=== PATIENT | female | born 1940 | race American Indian/Alaskan Native ===

== ENCOUNTER 2016-10-14 12:23 | Emergency (ER) | payer MEDICARE ==
[2016-10-14 12:30] VITALS: BMI 21.0
--- NOTE | 2016-10-14 12:42 | ED PDOC ---
Arrival/HPI - General Chief Complaint: Abdominal Pain Time Seen by Provider: 10/14/16 12:30 Historian: Patient, Family (Daughter) - History of Present Illness Time/Duration: Prior to Arrival Symptom Onset: Gradual Symptom Course: Improving Severity Level: Mild Activities at Onset: Rest Associated Symptoms (Text): 10/14/16 12:39 Patient was directed to the emergency department from dialysis for chest pain. She had some abdominal pain previously which has completely resolved. No nausea vomiting or diarrhea. No back pain. There is some chronic dyspnea, and no different from usual. No fever or chills. She did finish dialysis today. Past Medical History - Infectious Disease Hx of Infectious Diseases: None - Tetanus Immunization Tetanus Immunization: Unknown - Cardiac Hx Pacemaker: No - Pulmonary Hx Respiratory Disorders: No - Neurological Hx Paralysis: No - HEENT Hx HEENT Disorder: Yes (wears glasses) - Renal Hx Renal Disorder: Yes Hx Dialysis: Yes ([facility] [place] [id number]) Date of Last Dialysis Treatment: 10/14/16 Hx Renal Failure: Yes (insufficency) - Endocrine/Metabolic Hx Endocrine Disorders: Yes Hx Diabetes Mellitus Type 2: Yes - Hematological/Oncological Hx Anemia: Yes Hx Blood Transfusions: Yes - Integumentary Hx Dermatological Disorder: No - Musculoskeletal/Rheumatological Hx Musculoskeletal Disorders: Yes - Gastrointestinal Hx Gastrointestinal Disorders: Yes Hx Diverticulitis: Yes - Genitourinary/Gynecological Hx Genitourinary Disorders: No - Psychiatric Hx Psychophysiologic Disorder: No Hx Emotional Abuse: No Hx Physical Abuse: No Hx Substance Use: No - Surgical History Hx Coronary Stent: Yes (3) Hx Open Heart Surgery: Yes Other/Comment: right chest wall dialysis cath - Anesthesia Hx Anesthesia Reactions: No Hx Malignant Hyperthermia: No - Suicidal Assessment Feels Threatened In Home Enviroment: No Family/Social History - Physician Review Nursing Documentation Reviewed: Yes Family/Social History: Unknown Family HX Smoking Status: Former Smoker Hx Alcohol Use: No Hx Substance Use: No Hx Substance Use Treatment: No Allergies/Home Meds Allergies/Adverse Reactions: Allergies GREG Inhibitors Allergy (Intermediate, Verified 10/14/16 12:33) SWELLING lorazepam [From Ativan] Allergy (Intermediate, Verified 10/14/16 12:33) SWELLING Home Medications: Home Meds Medication Instructions Recorded Confirmed Clopidogrel [Plavix] 75 mg PO DAILY 08/19/14 10/12/16 Furosemide [Lasix] 40 mg PO DAILY 11/24/14 10/12/16 Carvedilol [Coreg] 12.5 mg PO BID 01/15/16 10/12/16 Rosuvastatin Calcium [Crestor] 20 mg PO DAILY 01/15/16 10/12/16 cloNIDine [Catapres] 0.2 mg PO BID 04/13/16 10/12/16 hydrALAZINE [Apresoline] 25 mg PO TID 06/21/16 10/12/16 Mirtazapine [Remeron] 15 mg PO DAILY 10/12/16 10/12/16 Review of Systems - Physician Review All systems were reviewed & negative as marked: Yes - Review of Systems Constitutional: Fatigue. absent: Fevers Respiratory: SOB. absent: Cough, Wheezing Cardiovascular: Chest Pain. absent: Palpitations, Syncope Gastrointestinal: Abdominal Pain. absent: Diarrhea, Nausea, Vomiting Neurological: absent: Headache, Dizziness Physical Exam Vital Signs Temp Pulse Resp BP Pulse Ox 10/14/16 13:08 98.7 F 57 L 16 138/67 97 Temperature: Afebrile Blood Pressure: Normal Pulse: Regular Respiratory Rate: Normal Appearance: Positive for: Well-Appearing, Non-Toxic, Comfortable Pain Distress: None Mental Status: Positive for: Alert and Oriented X 3 - Systems Exam Head: Present: Atraumatic, Normocephalic Pupils: Present: PERRL Extroacular Muscles: Present: EOMI Conjunctiva: Present: Normal Mouth: Present: Moist Mucous Membranes Pharnyx: No: ERYTHEMA, EXUDATE, TONSILS ENLARGED Neck: Present: Normal Range of Motion Respiratory/Chest: Present: Decreased Breath Sounds, Rales (Mild bibasilar rales ). No: Respiratory Distress, Accessory Muscle Use, Wheezes, Retracting, Rhonchi , Tachypneic, Tender to Palpation Cardiovascular: Present: Regular Rate and Rhythm, Normal S1, S2. No: Murmurs Abdomen: Present: Normal Bowel Sounds. No: Tenderness, Distention, Peritoneal Signs, Rebound, Guarding Upper Extremity: Present: Normal Inspection. No: Cyanosis, Edema Lower Extremity: Present: Normal Inspection. No: Edema Neurological: Present: GCS=15, CN II-XII Intact, Speech Normal, Motor Func Grossly Intact Skin: Present: Warm, Dry, Normal Color. No: Rashes Psychiatric: Present: Alert, Oriented x 3, Normal Insight, Normal Concentration Medical Decision Making ED Course and Treatment: 10/14/16 13:04 EKG shows normal sinus rhythm rate approximately 76 with PVCs and PACs and no acute ST or T-wave changes 10/14/16 14:33 RN reports that the patient was feeling better and did not want to wait for her workup and she and her daughter eloped from the emergency department - Lab Interpretations Lab Results: 10/14/16 14:00 10/14/16 14:00 Lab Results 10/14/16 14:00: WBC 7.2, RBC 3.50, Hgb 10.1 L, Hct 30.7 L, MCV 87.7, MCH 28.9, MCHC 32.9, RDW 14.0, Plt Count 238, MPV 9.4, Gran % 72.1 H, Lymph % (Auto) 18.0 L, Addison % (Auto) 7.1 H, Eos % (Auto) 2.4, Baso % (Auto) 0.4, Gran # 5.22, Lymph # 1.3, Addison # 0.5, Eos # 0.2, Baso # 0.03, Sodium 136, Potassium 3.5 L, Chloride 97 L, Carbon Dioxide 31, Anion Gap 12, BUN 22 H, Creatinine 4.2 H, Est GFR ( Amer) 12, Est GFR (Non-Af Amer) 10, Random Glucose 81, Calcium 9.1 , Total Bilirubin 0.8, AST 36, ALT 22, Alkaline Phosphatase 141 H, Lactate Dehydrogenase 395, Total Creatine Kinase 29 L, Troponin I Pending, Total Protein 8.1, Albumin 3.7, Globulin 4.4, Albumin/Globulin Ratio 0.8 L, Lipase 192 - RAD Interpretation Radiology Orders: 10/14/16 12:38 CHEST PORTABLE [RAD] Stat Chest 1 view shows hardware with right-sided line. No infiltrate effusion or cardiomegaly Wastewater Supervisor: ED Physician - Medication Orders Current Medication Orders: Discontinued Medications Aspirin (Ecotrin) 81 mg PO STAT STA Stop: 10/14/16 12:38 Last Admin: 10/14/16 12:57 Dose: 81 MG Nitroglycerin (Nitrostat Sl Tab) 0.4 mg SL STAT STA Stop: 10/14/16 12:38 Last Admin: 10/14/16 12:57 Dose: 0.4 MG Disposition/Present on Arrival - Present on Arrival Any Indicators Present on Arrival: No History of DVT/PE: No History of Uncontrolled Diabetes: No Urinary Catheter: No History of Decub. Ulcer: No History Surgical Site Infection Following: None - Disposition Have Diagnosis and Disposition been Completed?: Yes Diagnosis: Chest pain, Abdominal pain, Renal failure Disposition: ELOPEMENT - ER ONLY Disposition Time: 14:34 Patient Plan: Other Patient Problems: Current Active Problems Problem Status Diagnosed Renal insufficiency Acute Condition: GOOD Discharge Instructions (ExitCare): Chest Pain (ED)
[2016-10-14 13:09] VITALS: BP 138/67; PULSE 57; RESP 16; TEMP 98.7; O2SAT 97
--- NOTE | 2016-10-14 13:10 | RAD ---
HISTORY: cp COMPARISON: Chest xray performed 09/02/16 TECHNIQUE: Chest, one view. FINDINGS: Right-sided dialysis catheter extends to the cavoatrial junction. LUNGS: No focal consolidation. Please note that chest x-ray has limited sensitivity for the detection of pulmonary masses. PLEURA: No significant pleural effusion identified. No definite pneumothorax . CARDIOVASCULAR: Median sternotomy. Mild cardiomegaly. Atherosclerotic calcifications. OSSEOUS STRUCTURES: Degenerative changes. VISUALIZED UPPER ABDOMEN: Unremarkable. OTHER FINDINGS: None. IMPRESSION: Right-sided dialysis catheter extends to the cavoatrial junction. Median sternotomy. Mild cardiomegaly. Atherosclerotic calcifications.
[2016-10-14 14:08] LABS: ADD MANUAL DIFF? NO
[2016-10-14 14:15] LABS: BASO # 0.03 K/mm3 (0.0-2.0); BASO % 0.4 % (0.0-3.0); EOS # 0.2 (0.0-0.7); EOS % 2.4 % (1.5-5.0); GRAN # 5.22 (1.4-6.5); GRAN % 72.1 % (50.0-68.0); HEMATOCRIT 30.7 % (36.0-48.0); LYMPH # 1.3 (1.2-3.4); MEAN CELL VOLUME 87.7 fL (80.0-105.0); MEAN CORPUSCULAR HEMOGLOBIN 28.9 pg (25.0-35.0); MEAN CORPUSCULAR HGB CONC 32.9 g/dl (31.0-37.0); MEAN PLATELET VOLUME 9.4 fl (7.0-11.0); MONO # 0.5 (0.1-0.6); MONO % 7.1 % (1.0-6.0); PLATELET COUNT 238 10^3/uL (120.0-450.0); WHITE BLOOD COUNT 7.2 10^3/ul (4.5-11.0)
[2016-10-14 14:25] LABS: ALB/GLOB RATIO 0.8 (1.1-1.8); BILIRUBIN,TOTAL 0.8 mg/dL (0.2-1.3); CALCIUM 9.1 mg/dL (8.4-10.5); POTASSIUM 3.5 mmol/L (3.6-5.0); TOTAL PROTEIN 8.1 g/dL (5.8-8.3)
[2016-10-14 14:36] LABS: TROPONIN I 0.02 ng/mL
--- NOTE | 2016-10-15 09:42 | CARD ---
APPROVED REPORT EKG Measurement Heart [id number] <Conclusion> Sinus rhythm PVCs RVCD PRWP Leftward axis Artifact present C/W ECG 09/02/16: PVCs are new
== END 2016-10-14 14:20 | disposition left against medical advice (07) ==
LOC: ED 12:23
DX: R07.9 Chest pain, unspecified (principal); R10.9 Unspecified abdominal pain; N19 Unspecified kidney failure; Z99.2 Dependence on renal dialysis; E11.9 Type 2 diabetes mellitus without complications

== ENCOUNTER 2016-10-26 09:51 | Emergency (ER) | payer MEDICARE ==
[2016-10-26 09:51] VITALS: BMI 21.0
[2016-10-26 09:58] VITALS: BP 116/59; PULSE 66; RESP 16; TEMP 98.6
--- NOTE | 2016-10-26 10:33 | CP.PCM.PN ---
<Frederick Brooks - Last Filed: 10/26/16 10:10> Subjective - Date & Time of Evaluation Date of Evaluation: 10/26/16 Time of Evaluation: 10:00 - Subjective Subjective: Responded STAT to rapid response call 75 year old female with a past medical history of mild dementia, HTN, ESRD on dialysis was being transported by [facility] for scheduled dialysis. Upon arrival, she fell out of the van and hit her head on the right side and right arm. customs guard, Xuan Truong called the rapid response. She was placed on a stretcher and transported to the ED immediately. Then RUG DRYING MACHINE OPERATOR team saw her in the ED and assessed her. Pt. denies LOC and had a also had an episode vomiting (without blood) and complains of headache and right arm pain. Vital signs pulse 67, BP 116/59, respirations 18 PE: Pt. is alert and oriented to person. She understands she is here for dialysis, but she does not know where she is or the date. There is a small abrasion on her right side of her forehead. No active bleeding noted. Pupils are PERRLA, cataracts noted, no JVD heart, RRR no murmrus Lungs, CTAB no wheezing, dialysis cath noted on Right chest wall Abd, soft, non tender Ext, no swelling, moves extremities fairly well, no pedal edema Skin is warm and dry A&O x1, right arm strength less than left, possibly chronic as per old chart Objective - Vital Signs/Intake and Output Vital Signs (last 24 hours): Temp Pulse Resp BP Pulse Ox 98.6 F 66 16 116/59 L 10/26/16 09:58 10/26/16 09:58 10/26/16 09:58 10/26/16 09:58 <Alecia Hernández - Last Filed: 10/26/16 10:47> Objective - Vital Signs/Intake and Output Vital Signs (last 24 hours): Temp Pulse Resp BP Pulse Ox 98.6 F 66 16 116/59 L 10/26/16 09:58 10/26/16 09:58 10/26/16 09:58 10/26/16 09:58 Attending/Attestation - Attestation I have personally seen and examined this patient.: Yes I have fully participated in the care of the patient.: Yes I have reviewed all pertinent clinical information, including history, physical exam and plan: Yes Notes (Text): 10/26/16 10:40 Patient was assessed by me after she was transferred to the ER. IMP:Fall PLAN:endorsed to ER MD .
--- NOTE | 2016-10-26 10:44 | ED PDOC ---
Arrival/HPI - General Chief Complaint: Trauma Time Seen by Provider: 10/26/16 10:03 Historian: Patient - History of Present Illness Narrative History of Present Illness (Text): 10/26/16 10:41 75 year old female presents to the emergency department after mechanical fall prior to arrival. Patient is alert and oriented to person. Spoke with patient's son, Ar, who reports this is her baseline mental status. Denies LOC. No other complaints at this time. Time/Duration: Prior to Arrival Symptom Onset: Sudden Symptom Course: Resolved Modifying Factors (Text): None Associated Symptoms (Text): None Past Medical History - Provider Review Nursing Documentation Reviewed: Yes - Infectious Disease Hx of Infectious Diseases: None - Tetanus Immunization Tetanus Immunization: Unknown - Cardiac Hx Pacemaker: No - Pulmonary Hx Respiratory Disorders: No - Neurological Hx Paralysis: No - HEENT Hx HEENT Disorder: Yes (wears glasses) - Renal Hx Renal Disorder: Yes Hx Dialysis: Yes ([facility] [place] [id number]) Date of Last Dialysis Treatment: 10/14/16 Hx Renal Failure: Yes (insufficency) - Endocrine/Metabolic Hx Endocrine Disorders: Yes Hx Diabetes Mellitus Type 2: Yes - Hematological/Oncological Hx Anemia: Yes Hx Blood Transfusions: Yes - Integumentary Hx Dermatological Disorder: No - Musculoskeletal/Rheumatological Hx Musculoskeletal Disorders: Yes - Gastrointestinal Hx Gastrointestinal Disorders: Yes Hx Diverticulitis: Yes - Genitourinary/Gynecological Hx Genitourinary Disorders: No - Psychiatric Hx Psychophysiologic Disorder: No Hx Emotional Abuse: No Hx Physical Abuse: No Hx Substance Use: No - Surgical History Hx Coronary Stent: Yes (3) Hx Open Heart Surgery: Yes Other/Comment: right chest wall dialysis cath - Anesthesia Hx Anesthesia Reactions: No Hx Malignant Hyperthermia: No - Suicidal Assessment Feels Threatened In Home Enviroment: No Family/Social History - Physician Review Nursing Documentation Reviewed: Yes Family/Social History: Unknown Family HX Smoking Status: Former Smoker Hx Alcohol Use: No Hx Substance Use: No Hx Substance Use Treatment: No Allergies/Home Meds Allergies/Adverse Reactions: Allergies GREG Inhibitors Allergy (Intermediate, Verified 10/26/16 09:58) SWELLING lorazepam [From Ativan] Allergy (Intermediate, Verified 10/26/16 09:58) SWELLING Home Medications: Home Meds Medication Instructions Recorded Confirmed Clopidogrel [Plavix] 75 mg PO DAILY 08/19/14 10/12/16 Furosemide [Lasix] 40 mg PO DAILY 11/24/14 10/12/16 Carvedilol [Coreg] 12.5 mg PO BID 01/15/16 10/12/16 Rosuvastatin Calcium [Crestor] 20 mg PO DAILY 01/15/16 10/12/16 cloNIDine [Catapres] 0.2 mg PO BID 04/13/16 10/12/16 hydrALAZINE [Apresoline] 25 mg PO TID 06/21/16 10/12/16 Mirtazapine [Remeron] 15 mg PO DAILY 10/12/16 10/12/16 Review of Systems - Physician Review All systems were reviewed & negative as marked: Yes Physical Exam - Physical Exam Narrative Physical Exam (Text): - Review of Systems Constitutional: Normal. absent: Fatigue, Weight Change, Fevers Eyes: Normal ENT: Normal Respiratory: Normal absent: SOB, Cough, Sputum Cardiovascular: Normal absent: Chest pain, Palpitations, Syncope Gastrointestinal: Normal absent: Abdominal pain, Diarrhea, Nausea, Vomiting Genitourinary: Normal. absent: Dysuria, Frequency, Hematuria Musculoskeletal: Normal. absent: Arthralgias, Back Pain, Neck Pain Skin: Normal Neurological: Normal absent: Focal Weakness Endocrine: Normal Hemo/Lymphatic: Normal Psychiatric: Normal - Physical exam Patient appears age appropriate, speaking full sentences without difficulty Head atraumatic. No nasal bone deformity or tenderness, no facial or jaw pain/ swelling. No neck midline tenderness, thoracic and lumbar spine with no midline tenderness. Pt moving b/l upper and lower extremities without difficulty, 5/5 strength, with full active and passive ROM. Distal neurovasc fully intact. Abd soft/nt/ng, no hematomas, no peritoneal signs. Neg. pelvic rock. - Systems Exam Head: Present: Atraumatic, Normocephalic Pupils: Present: PERRL Extraocular Muscles: Present: EOMI Conjunctiva: Present: Normal Mouth: Present: Moist Mucous Membranes Neck: Present: Normal Range of Motion. No: MIDLINE TENDERNESS, Paraspinal Tenderness Respiratory/Chest: Present: Clear to Auscultation, Good Air Exchange. No: Respiratory Distress, Accessory Muscle Use, Tachypneic Cardiovascular: Present: Regular Rate and Rhythm, Normal S1, S2, Peripheral Pulses Present. No: Murmurs Abdomen: Present: Normal Bowel Sounds, No: Tenderness, Peritoneal Signs, Rebound, Guarding, Distention Back: Present: Normal Inspection. No: Midline Tenderness, Paraspinal Tenderness Upper Extremity: Present: Normal Inspection. No: Cyanosis, Edema Lower Extremity: Present: Normal Inspection. No: Edema Neurological: Present: GCS=15, Speech Normal, cranial nerves II through XII fully intact with no cerebellar abnormality, neuro-sensory fully intact. No focal neurological deficits. Skin: Present: Warm, Dry, Normal Color. No: Rashes Lymphatic: Present: OX3, NI, NC Psychiatric: Present: Alert, Oriented x 1, Normal Concentration Vital Signs Reviewed: Yes Vital Signs Temp Pulse Resp BP 10/26/16 09:58 98.6 F 66 16 116/59 L Temperature: Afebrile Blood Pressure: Normal Pulse: Regular Respiratory Rate: Normal Appearance: Positive for: Well-Appearing, Non-Toxic, Comfortable Pain Distress: None Mental Status: Positive for: other (Alert and oriented x 1, baseline as per son) Finger Stick Blood Glucose: 141 Medical Decision Making ED Course and Treatment: Impression: 75 year old female with history of mild dementia presents s/p mechanical fall prior to arrival. On physical exam, patient has no acute findings. spoke with pt's son and daughter (wilian barger). they states pt is at her baseline MS. state she does not live alone. Plan: -- CT Head -- Reassess and disposition Progress Notes: CT Head IMPRESSION: Director Digital Analytics: Dr. Elroy Pardo No intracranial mass, hemorrhage or evidence of acute infarct. Old right frontal and right occipital encephalomalacia change with remote ischemic change deep right frontoparietal white matter. No change from 09/02/2016. 10/26/16 12:31 pt ambulates in the ER without difficulty or assistance states she feels comfortable being dc'd at this time pt states she is going to HD Pt states she understands to return to the ER right away for new or worsening symptoms or for inability to f/u with PMD or specialist as instructed. Patient states that she fully agrees with and understands discharge instructions. States that she agrees with the plan and disposition. Verbalized and repeated discharge instructions and plan. I have given the patient opportunity to ask any additional questions. . - RAD Interpretation Radiology Orders: 10/26/16 10:42 HEAD W/O CONTRAST [CT] Stat - EKG Interpretation Interpreted by ED Physician: Yes Type: 12 lead EKG - Scribe Statement The provider has reviewed the documentation as recorded by the Elsa Bates Provider Scribe Attestation: All medical record entries made by the Elsa were at my direction and personally dictated by me. I have reviewed the chart and agree that the record accurately reflects my personal performance of the history, physical exam, medical decision making, and the department course for this patient. I have also personally directed, reviewed, and agree with the discharge instructions and disposition. Disposition/Present on Arrival - Present on Arrival Any Indicators Present on Arrival: No History of DVT/PE: No History of Uncontrolled Diabetes: No Urinary Catheter: No History of Decub. Ulcer: No History Surgical Site Infection Following: None - Disposition Have Diagnosis and Disposition been Completed?: Yes Diagnosis: Fall Disposition: HOME/ ROUTINE Disposition Time: 12:55 Patient Plan: Discharge Patient Problems: Current Active Problems Problem Status Diagnosed Renal insufficiency Acute Condition: GOOD Discharge Instructions (ExitCare): Fall Prevention (ED), Fall Prevention for Older Adults (ED) Additional Instructions: PLEASE RETURN TO THE EMERGENCY DEPARTMENT FOR NEW OR WORSENING SYMPTOMS. RETURN RIGHT AWAY IF YOU CANNOT FOLLOW UP WITH YOUR PRIMARY CARE DOCTOR, CLINIC, OR SPECIALIST IN 1-2 DAYS.
--- NOTE | 2016-10-26 11:18 | CT ---
PROCEDURE: CT HEAD WITHOUT CONTRAST. HISTORY: fall COMPARISON: 09/02/2016 TECHNIQUE: Axial computed tomography images were obtained through the head/brain without intravenous contrast. Radiation dose: Total exam DLP = 789.32 mGy-cm. FINDINGS: HEMORRHAGE: No intracranial hemorrhage. BRAIN: No mass effect or edema. Old right frontal and right occipital encephalomalacia common nonspecific. No change from prior. No evidence of acute infarct. Extensive remote ischemic change right frontoparietal deep white matter. Mild periventricular chronic microvascular ischemic change. VENTRICLES: Unremarkable. No hydrocephalus. CALVARIUM: Unremarkable. PARANASAL SINUSES: Unremarkable as visualized. No significant inflammatory changes. MASTOID AIR CELLS: Unremarkable as visualized. No inflammatory changes. OTHER FINDINGS: None. IMPRESSION: No intracranial mass, hemorrhage or evidence of acute infarct. Old right frontal and right occipital encephalomalacia change with remote ischemic change deep right frontoparietal white matter. No change from 09/02/2016.
== END 2016-10-26 13:17 | disposition home or self-care (01) ==
LOC: ED 09:51
DX: Z03.89 Encounter for observation for other suspected diseases and conditions ruled out (principal); W19.XXXA Unspecified fall, initial encounter; E11.9 Type 2 diabetes mellitus without complications; Z87.891 Personal history of nicotine dependence; Z99.2 Dependence on renal dialysis

== ENCOUNTER 2016-11-01 09:07 | Day surgery (SDC) | payer MEDICARE ==
[2016-10-28 09:56] VITALS: BMI 217863.7
[2016-11-01 09:52] LABS: ADD MANUAL DIFF? NO
[2016-11-01 10:01] LABS: BASO # 0.03 K/mm3 (0.0-2.0); BASO % 0.5 % (0.0-3.0); EOS # 0.2 (0.0-0.7); EOS % 3.8 % (1.5-5.0); GRAN # 3.74 (1.4-6.5); GRAN % 59.8 % (50.0-68.0); HEMATOCRIT 33.7 % (36.0-48.0); LYMPH # 1.8 (1.2-3.4); LYMPH % 28.5 % (22.0-35.0); MEAN CELL VOLUME 88.7 fL (80.0-105.0); MEAN CORPUSCULAR HEMOGLOBIN 28.4 pg (25.0-35.0); MEAN PLATELET VOLUME 9.1 fl (7.0-11.0); MONO # 0.5 (0.1-0.6); MONO % 7.4 % (1.0-6.0); PLATELET COUNT 274 10^3/uL (120.0-450.0); RED CELL DISTRIBUTION WIDTH 14.6 % (11.5-14.5); WHITE BLOOD COUNT 6.3 10^3/ul (4.5-11.0)
[2016-11-01 11:08] LABS: ALB/GLOB RATIO 0.7 (1.1-1.8); BILIRUBIN,TOTAL 0.7 mg/dL (0.2-1.3); CALCIUM 10.1 mg/dL (8.4-10.5); POTASSIUM 4.7 mmol/L (3.6-5.0); TOTAL PROTEIN 8.9 g/dL (5.8-8.3)
[2016-11-01] MEDS ORDERED: Heparin 10,000 Units/ml ONE (11:11)
[2016-11-01] MEDS ORDERED: Liquid Adhesive TOP ONE (11:12)
[2016-11-01] MEDS ORDERED: Lidocaine 1% Inj (20ml) ONE (11:12)
[2016-11-01] MEDS ORDERED: Bupivacaine 0.5% Inj(30mL) ONE (11:12)
[2016-11-01] MEDS ORDERED: Etomidate 20 mg/10ml Inj IV ONE (11:47)
[2016-11-01] MEDS ORDERED: Propofol 10 mg/ml Inj (20 ML) ONE (11:47)
[2016-11-01] MEDS ORDERED: ePHEDrine 50 mg/ml Inj ONE (12:20)
[2016-11-01] MEDS ORDERED: Neostigmine Methylsulfate 3mg/3ml Syringe IV ONE (13:45)
--- NOTE | 2016-11-01 14:07 | PCM.SURG1 ---
Surgeon's Initial Post Op Note - Surgeon's Notes Surgeon: Lazaro Plate Put In Worker: Luz Elena Pre-Operative Diagnosis: renal failure, non-functional AVF (L) Operative Findings: AVF Post-Operative Diagnosis: same Operation Performed: Revision of Left AVF, Transposition of Basilic vein Specimen/Specimens Removed: n/a Estimated Blood Loss: EBL {In ML}: 10 Post-Op Condition: Good Date of Surgery/Procedure: 11/01/16 Time of Surgery/Procedure: 12:00
[2016-11-01] MEDS ORDERED: HYDROmorphone 0.5 mg/0.5 ml ISec IVP PRN (14:16)
[2016-11-01] MEDS ORDERED: Sodium Chloride 0.9% 1,000 ML IV SCH (14:30)
[2016-11-01 15:19] VITALS: RESP 18; TEMP 98.2; O2SAT 100
[2016-11-01 17:54] VITALS: BP 142/72; PULSE 66
--- NOTE | 2016-11-02 08:09 | PN ---
DATE: 11/01/2016 PREOPERATIVE DIAGNOSES: End-stage renal disease and a malfunctioning arteriovenous fistula. POSTOPERATIVE DIAGNOSES: End-stage renal disease and a malfunctioning arteriovenous fistula and a st ricture of the fistula. PROCEDURES PERFORMED: 1. Venous mapping of the left upper extremity veins and artery. 2. Revision of the AV fistula anastomosis. 3. Transposition of basilic vein of the AV fistula. SURGEON: Dr. Willis PUMP HOUSE ENGINEER: Dr. Laguna ANESTHESIOLOGIST: Dr. Soares ANESTHESIA: General endotracheal. ESTIMATED BLOOD LOSS: Minimal. SPECIMEN: None. The patient is a 75-year-old female with a history of end-stage renal disease, on dialysis via the in dwelling catheter. The patient was brought in for AV fistula revision, which was previously created in the antecubital fossa between basilic vein and brachial artery. However, due to the position of t he basilic vein as well as patient's poor status, the decision was made to stage it in 2 separate sta ges by creating AV fistula first and, once the fistula develops and works, proceed with the transposi tion. The patient was brought to the operating room and placed on the operating table in a supine position. The patient was connected to EKG, blood pressure and pulse oximeter monitors. The patient then und erwent general endotracheal anesthesia, was prepped and draped in the usual sterile fashion. First, a standard timeout procedure took place, and everybody in the room agreed as to the patient's identity, diagnosis and procedure to be performed. Using lidocaine mixed with Marcaine, the area of the incision was marked. I then proceeded with a ca reful evaluation of the left upper arm with a venous Doppler by carefully marking the position and si de branches of the basilic vein. The anastomosis was also evaluated, appeared to have a stricture fo r about 2 cm. I then marked that as well. Next, I proceeded with making an incision directly overly ing the basilic vein and carefully came down to the vein itself. The area of the anastomosis was car efully dissected out completely. It appeared to contain multiple bands of fibrous tissue, which were dissected out, and the vessel was freed up in order to alleviate the stricture. Once this was compl eted, the anastomosis was reinforced using 6-0 Prolene stitches, and then I proceeded with a mobiliza tion of the basilic vein. All the side branches were carefully taken down and ligated with 3-0 silk. Once the vein was completely freed and marked for positioning, I then proceeded with creating a fla p medially and anteriorly in order to reposition the vein on the top of biceps. Once this was create d, the fat itself was reconnected and the vein was put on top of it in a new bed directly under the s kin. This was perfectly palpable from outside. I then proceeded with closure of the wound using 3-0 Vicryl for the subcutaneous tissue and surgical yodit for the skin. A sterile dressing was applie d on top of the wound. The patient tolerated this procedure well and there were no complications. T he patient was awakened and transferred to recovery room for further observation. Celestino Willis MD cc: [id number] TT: 11/01/2016 14:28:17 Confirmation # [id number] Dictation # [id number] en 11/01/2016 17:37:54
== END 2016-11-01 18:00 | disposition home or self-care (01) ==
LOC: SDS 09:07
PROVIDERS: ATTEND General Practice
DX: T82.510A Breakdown (mechanical) of surgically created arteriovenous fistula, initial encounter (principal); I12.0 Hypertensive chronic kidney disease with stage 5 chronic kidney disease or end stage renal disease; N18.6 End stage renal disease; E11.22 Type 2 diabetes mellitus with diabetic chronic kidney disease; Y83.2 Surgical operation with anastomosis, bypass or graft as the cause of abnormal reaction of the patient, or of later complication, without mention of misadventure at the time of the procedure; I25.2 Old myocardial infarction; Z99.2 Dependence on renal dialysis
CPT/HCPCS: 36415; 36819; 36832; 80053; 85025; J0360; J0690; J1170; J1644; J2001; J2405; J2704; J2710; J3010; J7040

== ENCOUNTER 2016-11-09 10:15 | Inpatient (IN) | payer MEDICARE, OTHER ==
[2016-11-09] MEDS ORDERED: Sodium Chloride 0.9% 500 ML IV STA (10:32)
[2016-11-09 10:33] VITALS: BMI 20.9
--- NOTE | 2016-11-09 10:42 | ED PDOC ---
Arrival/HPI - General Time Seen by Provider: 11/09/16 10:19 Historian: Patient - History of Present Illness Narrative History of Present Illness (Text): 11/09/16 10:35 A 76 year old female, whose past medical history includes ESRD with hemodialysis on , presents to the emergency department complaining of dizziness and near-syncope before dialysis this morning. Patient reports she almost fell but was caught by her son. Patient denies any loss of consciousness , fever, nausea, vomiting, diarrhea, abdominal pain, urinary symptoms, chest pain, shortness of breath or any other complaints. PMD: Dr. Gonzalez Time/Duration: Other (This morning) Symptom Course: Unchanged Quality: Other Context: Home Past Medical History - Provider Review Nursing Documentation Reviewed: Yes - Infectious Disease Hx of Infectious Diseases: None - Tetanus Immunization Tetanus Immunization: Unknown - Cardiac Hx Pacemaker: No - Pulmonary Hx Respiratory Disorders: No - Neurological Hx Paralysis: No - HEENT Hx HEENT Disorder: Yes (wears glasses) - Renal Hx Dialysis: Yes ([facility] – [place] [id number]) Date of Last Dialysis Treatment: 10/14/16 - Endocrine/Metabolic Hx Endocrine Disorders: Yes Hx Diabetes Mellitus Type 2: Yes - Hematological/Oncological Hx Blood Transfusions: Yes Hx Blood Transfusion Reaction: No - Integumentary Hx Dermatological Disorder: No - Musculoskeletal/Rheumatological Hx Musculoskeletal Disorders: Yes - Gastrointestinal Hx Gastrointestinal Disorders: Yes Hx Diverticulitis: Yes - Genitourinary/Gynecological Hx Genitourinary Disorders: No - Psychiatric Hx Emotional Abuse: No Hx Physical Abuse: No Hx Substance Use: No - Surgical History Hx Coronary Stent: Yes (3) Hx Open Heart Surgery: Yes Other/Comment: right chest wall dialysis cath - Anesthesia Hx Anesthesia Reactions: No Hx Malignant Hyperthermia: No - Suicidal Assessment Feels Threatened In Home Enviroment: No Family/Social History - Physician Review Nursing Documentation Reviewed: Yes Family/Social History: No Known Family HX Smoking Status: Former Smoker Hx Alcohol Use: No Hx Substance Use: No Hx Substance Use Treatment: No Allergies/Home Meds Allergies/Adverse Reactions: Allergies GREG Inhibitors Allergy (Intermediate, Verified 11/09/16 10:34) SWELLING lorazepam [From Ativan] Allergy (Intermediate, Verified 11/09/16 10:34) SWELLING Home Medications: Home Meds Medication Instructions Recorded Confirmed Clopidogrel [Plavix] 75 mg PO DAILY 08/19/14 11/01/16 Furosemide [Lasix] 40 mg PO DAILY 11/24/14 11/01/16 Carvedilol [Coreg] 12.5 mg PO BID 01/15/16 11/01/16 Rosuvastatin Calcium [Crestor] 20 mg PO DAILY 01/15/16 11/01/16 cloNIDine [Catapres] 0.2 mg PO BID 04/13/16 11/01/16 hydrALAZINE [Apresoline] 25 mg PO TID 06/21/16 11/01/16 Mirtazapine [Remeron] 15 mg PO DAILY 10/12/16 11/01/16 traMADol [Ultram] 1 tab PO Q6 PRN 11/01/16 11/01/16 Physical Exam - Physical Exam Narrative Physical Exam (Text): - Review of Systems Constitutional: Normal. absent: Fatigue, Weight Change, Fevers Eyes: Normal ENT: Normal Respiratory: Normal absent: SOB, Cough, Sputum Cardiovascular: (+) Near-syncope absent: Chest pain, Palpitations Gastrointestinal: Normal absent: Abdominal pain, Diarrhea, Nausea, Vomiting Genitourinary: Normal. absent: Dysuria, Frequency, Hematuria Musculoskeletal: Normal. absent: Arthralgias, Back Pain, Neck Pain Skin: Normal Neurological: (+) Dizzy absent: Focal Weakness Endocrine: Normal Hemo/Lymphatic: Normal Psychiatric: Normal - Physical exam Patient appears age appropriate, speaking full sentences without difficulty - Systems Exam Head: Present: Atraumatic, Normocephalic Pupils: Present: PERRL Extraocular Muscles: Present: EOMI Conjunctiva: Present: Normal Mouth: Present: Moist Mucous Membranes Neck: Present: Normal Range of Motion. No: MIDLINE TENDERNESS, Paraspinal Tenderness Respiratory/Chest: Present: Clear to Auscultation, Good Air Exchange. No: Respiratory Distress, Accessory Muscle Use, Tachypneic Cardiovascular: Present: Regular Rate and Rhythm, Normal S1, S2, Peripheral Pulses Present. No: Murmurs Abdomen: Present: Normal Bowel Sounds, No: Tenderness, Peritoneal Signs, Rebound, Guarding, Distention Back: Present: Normal Inspection. No: Midline Tenderness, Paraspinal Tenderness Upper Extremity: Present: Normal Inspection. No: Cyanosis, Edema Lower Extremity: Present: Normal Inspection. No: Edema Neurological: Present: GCS=15, Speech Normal, cranial nerves II through XII fully intact with no cerebellar abnormality, neuro-sensory fully intact. No focal neurological deficits. Negative HINTS exam. Skin: Present: Warm, Dry, Normal Color. No: Rashes Lymphatic: Present: OX3, NI, NC Psychiatric: Present: Alert and Oriented x 1 (which is patients baseline) Vital Signs Reviewed: Yes Vital Signs Temp Pulse Resp BP Pulse Ox 11/09/16 11:28 67 18 135/61 100 11/09/16 10:29 97.9 F 64 18 87/43 L 100 Temperature: Afebrile Blood Pressure: Hypotensive Pulse: Regular Respiratory Rate: Normal Appearance: Positive for: Well-Appearing, Non-Toxic, Comfortable Pain Distress: None Mental Status: Positive for: Alert and Oriented X 3 Medical Decision Making ED Course and Treatment: 11/09/16 10:35 Impression: A 76 year old female with dizziness and near-syncope. Patient is alert and oriented x1, which is normal to her baseline. Negative HINTS exam. Plan: -- Head CT -- Chest xray -- EKG -- Labs -- Blood culture -- IV fluids -- Reassess and disposition Prior Visits: Notes and results from previous visits were reviewed. No recent dizzy or syncope work ups performed. Progress Notes: 11/09/16 10:[address] Gonzalez at bedside, who agrees with telemetry observation to her service for near syncope and further work-up. Pt aware of and agrees with plan Report Date: 11/09/16 11:19 Procedure: Chest xray Dictated By: Elroy Pardo MD Impression: No active disease. 11/09/16 11:40 EKG interpreted by ER physician. Normal sinus. No ST-segment elevations. Normal intervals. Report Date: 11/09/16 12:13 Procedure: CT Head without contrast Dictated By: Elroy Pardo MD Impression: No evidence of acute infarct. No intracranial mass or hemorrhage. No interval change peer - Lab Interpretations Lab Results: 11/09/16 11:00 11/09/16 11:00 Lab Results 11/09/16 11:00: WBC 5.0 D, RBC 3.43 L, Hgb 9.8 L, Hct 30.4 L, MCV 88.6, MCH 28.6, MCHC 32.2, RDW 14.9 H, Plt Count 251, MPV 8.5, Gran % 56.9, Lymph % (Auto ) 32.3, Bertie % (Auto) 5.4, Eos % (Auto) 4.8, Baso % (Auto) 0.6, Gran # 2.83, Lymph # 1.6, Bertie # 0.3, Eos # 0.2, Baso # 0.03, PT 11.5, INR 1.06, APTT 27.8, Sodium 138, Potassium 4.5, Chloride 97 L, Carbon Dioxide 28, Anion Gap 18, BUN 43 H, Creatinine 8.6 H*, Est GFR ( Amer) 5, Est GFR (Non-Af Amer) 4, Random Glucose 121 H, Calcium 9.8, Total Bilirubin 0.8, AST 41 H, ALT 23, Alkaline Phosphatase 133, Lactate Dehydrogenase 466, Total Creatine Kinase 55, Troponin I 0.02, Total Protein 8.5 H, Albumin 3.8, Globulin 4.7, Albumin/ Globulin Ratio 0.8 L I have reviewed the lab results: Yes - RAD Interpretation Radiology Orders: 11/09/16 10:32 HEAD W/O CONTRAST [CT] Stat CHEST PORTABLE [RAD] Stat - Medication Orders Current Medication Orders: Amlodipine Besylate (Norvasc) 10 mg PO DAILY CAIN Aspirin (Aspirin Chewable) 81 mg PO DAILY CAIN Atorvastatin Calcium (Lipitor) 80 mg PO DAILY CAIN Carvedilol (Coreg) 12.5 mg PO BID CAIN Clonidine HCl (Catapres) 0.2 mg PO BID CAIN Clopidogrel Bisulfate (Plavix) 75 mg PO DAILY CAIN Hydralazine HCl (Apresoline) 25 mg PO TID CAIN Mirtazapine (Remeron) 15 mg PO HS CAIN Tramadol HCl (Ultram) 50 mg PO Q6 PRN PRN Reason: Pain, moderate (4-7) Discontinued Medications Sodium Chloride (Sodium Chloride 0.9%) 500 mls @ 1,000 mls/hr IV .Q30M STA Stop: 11/09/16 11:01 Last Admin: 11/09/16 11:03 Dose: 1,000 MLS/HR eMAR Start Stop Document 11/09/16 11:03 SS (Rec: 11/09/16 11:03 SS [id number]) Intravenous Solution Start Date 11/09/16 Start Time 11:03 End Date 11/09/16 End time 11:33 Total Infusion Time 30 - Scribe Statement The provider has reviewed the documentation as recorded by the Elsa Boykin Provider Jeffersonibvictor hugo Attestation: All medical record entries made by the Scribe were at my direction and personally dictated by me. I have reviewed the chart and agree that the record accurately reflects my personal performance of the history, physical exam, medical decision making, and the department course for this patient. I have also personally directed, reviewed, and agree with the discharge instructions and disposition. Disposition/Present on Arrival - Present on Arrival Any Indicators Present on Arrival: No History of DVT/PE: No History of Uncontrolled Diabetes: No Urinary Catheter: No History Surgical Site Infection Following: None - Disposition Have Diagnosis and Disposition been Completed?: Yes Diagnosis: Near syncope Disposition: HOSPITALIZED Disposition Time: 10:57 Patient Plan: Observation Patient Problems: Current Active Problems Problem Status Diagnosed Near syncope Acute Renal insufficiency Acute Condition: FAIR
[2016-11-09 11:10] LABS: ADD MANUAL DIFF? NO
[2016-11-09 11:12] LABS: BASO # 0.03 K/mm3 (0.0-2.0); BASO % 0.6 % (0.0-3.0); EOS # 0.2 (0.0-0.7); EOS % 4.8 % (1.5-5.0); GRAN # 2.83 (1.4-6.5); GRAN % 56.9 % (50.0-68.0); HEMATOCRIT 30.4 % (36.0-48.0); LYMPH # 1.6 (1.2-3.4); LYMPH % 32.3 % (22.0-35.0); MEAN CELL VOLUME 88.6 fL (80.0-105.0); MEAN CORPUSCULAR HEMOGLOBIN 28.6 pg (25.0-35.0); MEAN CORPUSCULAR HGB CONC 32.2 g/dl (31.0-37.0); MEAN PLATELET VOLUME 8.5 fl (7.0-11.0); MONO # 0.3 (0.1-0.6); MONO % 5.4 % (1.0-6.0); PLATELET COUNT 251 10^3/uL (120.0-450.0); RED CELL DISTRIBUTION WIDTH 14.9 % (11.5-14.5)
[2016-11-09 11:21] LABS: ALB/GLOB RATIO 0.8 (1.1-1.8); BILIRUBIN,TOTAL 0.8 mg/dL (0.2-1.3); CALCIUM 9.8 mg/dL (8.4-10.5); INR 1.06 (0.93-1.08); PARTIAL THROMBOPLASTIN TIME 27.8 Seconds (23.7-30.8); POTASSIUM 4.5 mmol/L (3.6-5.0); TOTAL PROTEIN 8.5 g/dL (5.8-8.3)
--- NOTE | 2016-11-09 11:21 | RAD ---
HISTORY: cough COMPARISON: 10/14/2016 FINDINGS: LUNGS: No active pulmonary disease. PLEURA: No significant pleural effusion identified, no pneumothorax apparent. CARDIOVASCULAR: Status post CABG. Right tunneled central venous dialysis catheter. OSSEOUS STRUCTURES: No significant abnormalities. VISUALIZED UPPER ABDOMEN: Normal. OTHER FINDINGS: None. IMPRESSION: No active disease.
[2016-11-09 11:32] LABS: TROPONIN I 0.02 ng/mL
--- NOTE | 2016-11-09 12:15 | CT ---
PROCEDURE: CT HEAD WITHOUT CONTRAST. HISTORY: VILLAR x2 weeks COMPARISON: None available. TECHNIQUE: Axial computed tomography images were obtained through the head/brain without intravenous contrast. Radiation dose: Total exam DLP = 774.23 mGy-cm. This CT exam was performed using one or more of the following dose reduction techniques: Automated exposure control, adjustment of the mA and/or kV according to patient size, and/or use of iterative reconstruction technique. FINDINGS: HEMORRHAGE: No intracranial hemorrhage. BRAIN: No mass effect or edema. Mild to moderate diffuse age-appropriate cerebral atrophy. Old right frontal and right occipital foci of encephalomalacia, unchanged. Mild periventricular chronic microvascular ischemic change. Extensive remote ischemic change right frontoparietal deep white matter. VENTRICLES: Unremarkable. No hydrocephalus. CALVARIUM: Unremarkable. PARANASAL SINUSES: Unremarkable as visualized. No significant inflammatory changes. MASTOID AIR CELLS: Unremarkable as visualized. No inflammatory changes. OTHER FINDINGS: None. IMPRESSION: No evidence of acute infarct. No intracranial mass or hemorrhage. No interval change peer
--- NOTE | 2016-11-09 12:33 | HP ---
HISTORY OF PRESENT ILLNESS: The patient is a 76-year-old black female known to me from multiple prev ious admissions, was brought in by son. The patient is plainly confused, unable to give much history with what happened; however, ER physician told me that she almost fell, but did not hit the ground be cause her son caught her. She did not lose consciousness. No history of nausea, vomiting. No fever , no chills, no shortness of breath. No rectal bleeding. No hemoptysis, no hematemesis. PAST MEDICAL HISTORY: Significant for: 1. Dementia. 2. End-stage renal disease, on hemodialysis. 3. Chronic anemia. 4. Coronary artery disease, status post open heart surgery. 5. Generalized osteoarthritis. 6. History of diverticulosis. 7. Hyperlipidemia. PAST SURGICAL HISTORY: Significant for open heart surgery. She has right chest Perm-A-Cath and she has left AV fistula placement. SOCIAL HISTORY: She is single, lives with her son. She used to be a heavy smoker in the past. Jacob es any substance abuse or alcohol abuse. ALLERGIES: SHE IS ALLERGIC TO GREG INHIBITOR AND LORAZEPAM. MEDICATIONS AT HOME: She is on: 1. Tramadol 1 tablet q. 6. 2. Hydralazine 25 three times a day. 3. Clonidine 0.2 b.i.d. 4. Amlodipine 10 mg daily. 5. Crestor 20 mg daily. 6. Remeron 50 mg daily. 7. Lasix 40 mg daily. 8. Plavix 75 daily. 9. Coreg 12.5 twice a day. 10. Aspirin 81 daily. REVIEW OF SYSTEMS: Significant for being confused, disoriented and having generalized weakness. PHYSICAL EXAMINATION: GENERAL: She is awake and alert. Does not look in any distress. VITAL SIGNS: She is afebrile, pulse 64, respirations 18, on arrival her blood pressure was 87/43 and follow up around 11:28 was 135/61. LUNGS: Bilateral fair airflow. No rhonchi or crackle. HEART: S1, S2 audible. ABDOMEN: Soft, nontender, no rebound, no guarding. NEUROLOGIC: The patient is awake and alert, but confused and disoriented. LABORATORY DATA: WBC is 5.0, hemoglobin 9.8, hematocrit 30.4, platelet of 251. PT is 11.5, INR 1.06 . Chemistry: Sodium 138, potassium 4.5, chloride 97, CO2 28, BUN 43, creatinine 8.6, blood sugar of 121. LFTs are within normal limits. AST 41, ALT 23. Total protein 8.5. ASSESSMENT: 1. Near syncope. 2. End-stage renal disease, on hemodialysis. 3. Probably postural hypotension. 4. Coronary artery disease, status post open heart surgery in the remote past. 5. Hyperlipidemia. 6. Chronic anemia. PLAN: We will place the patient in observation. I will order for carotid Doppler, order for orthost atic changes, and will request for physical therapy and reevaluate in a.m. and make disposition plan. Virginia Gonzalez MD cc: [phone] TT: 11/09/2016 12:32:26 alfredo
--- NOTE | 2016-11-09 16:01 | CARD ---
APPROVED REPORT EKG Measurement Heart [id number] <Conclusion> Normal sinus rhythm RVCD NSSTW changes
--- NOTE | 2016-11-09 16:31 | CON ---
DATE: 11/09/2016 REASON FOR CONSULTATION: Low blood pressure, syncopal episode, ESRD. HISTORY OF PRESENTING ILLNESS: A 76-year-old lady well known to me from outpatient followup was sent to the Emergency Room from outpatient dialysis because of report of fall at home. The patient prese nted to the dialysis unit weak and lethargic and groggy. She was found to have a low blood pressure. Currently, patient is seen in the Emergency Room. She is awake, she is alert. She is oriented x 2. She does not remember how she fell. She does not remember if she is taking her blood pressure medic ations. She reports that she lost her daughter recently. She also reports that she is living with h er son. She denies any chest tightness. She denies any shortness of breath. She denies any nausea, vomiting. PAST MEDICAL AND SURGICAL HISTORY: Longstanding hypertension, CAD, congestive heart failure, cardiom yopathy, ESRD, dementia, anemia of chronic kidney disease, secondary hyperparathyroidism. FAMILY HISTORY: Noncontributory. SOCIAL HISTORY: Ex-smoker, no alcohol use, no IV drug abuse. ALLERGIES: GREG INHIBITORS, LORAZEPAM. CURRENT MEDICATIONS: Hydralazine 25 t.i.d., aspirin 81, clonidine 0.2 b.i.d., Coreg 12.5 b.i.d., Lip itor 80, amlodipine 10, Plavix 75, tramadol 50 q. 6. REVIEW OF SYSTEMS: All systems reviewed. Pertinent positives as mentioned in the history of present ing illness, rest unremarkable. PHYSICAL EXAMINATION: GENERAL: Elderly lady lying in bed in the Emergency Room. She is awake. She is alert. VITAL SIGNS: Blood pressure 87/43, heart rate 64, respiratory rate 18, temperature 97.9. HEENT: Normocephalic, atraumatic, positive pallor. NECK: Supple, no JVD. LUNGS: Bilateral equal air entry, no rales. CARDIAC: S1, S2, regular rate and rhythm, no murmur, no rub. ABDOMEN: Soft, nondistended, nontender, bowel sounds present. EXTREMITIES: No lower extremity edema. LABORATORY DATA: Sodium 138, potassium 4.5, chloride 97, CO2 of 28, BUN 43, creatinine 8.6, glucose 121, calcium 9.8. AST 41, ALT 23, albumin 3.8. WBC 5, hemoglobin 9.8, hematocrit 30, platelets 251. Chest x-ray: No active pulmonary disease. ASSESSMENT AND PLAN: 1. Syncopal episode? 2. Hypotension. 3. History of hypertension. 4. Coronary artery disease, history of coronary artery bypass graft. 5. End-stage renal disease. 6. Anemia of chronic kidney disease. 7. Dementia. PLAN: 1. Currently, blood pressure is low. Perhaps needs her blood pressure medications adjusted. Will d iscontinue clonidine at this time, especially because it might be making her groggy and drowsy. 2. Dialysis today. 3. Adjust dry weight on dialysis. 4. Monitor vital signs in 3 positions. Tory Rubio MD cc: [id number] TT: 11/09/2016 16:30:30 Confirmation # [id number] Dictation # [id number] mn
--- NOTE | 2016-11-09 18:44 | US ---
PROCEDURE: Bilateral carotid artery duplex ultrasound HISTORY: Carotid stenosis syncope PHYSICIAN(S): Elroy Gallego MD. TECHNIQUE: Duplex sonography and color-flow Doppler were used to evaluate the carotid bifurcations and limited segments of the vertebral arteries bilaterally. FINDINGS: There is extensive irregular heterogeneous shadowing plaque noted at the carotid bifurcations bilaterally. The evaluations of the proximal internal carotid arteries is limited by the shadowing plaque. The peak systolic velocity in the proximal right internal carotid artery is 239 cm/sec. The end-diastolic velocity at this position is 75 cm/second. This corresponds to a 70-80 percent proximal right ICA stenosis. Mildly elevated systolic velocities are noted in the proximal right external carotid artery. There is retrograde flow in the right vertebral artery, consistent with right brachial cephalic or proximal subclavian occlusive disease. Once again the evaluation of the proximal left internal carotid artery is limited by shadowing plaque. The peak systolic velocity in the proximal left internal carotid artery is 192 cm/sec. This corresponds to a 60-79 percent proximal left ICA stenosis. Normal systolic velocities are noted in the proximal left external carotid artery. There is retrograde flow in the left vertebral artery, suggestive of proximal left subclavian occlusive disease. IMPRESSION: 1. Evaluation of the proximal internal carotid arteries is obscured by shadowing plaque. 2. 70-80 percent proximal right ICA stenosis. 3. 60-79 percent proximal left ICA stenosis. 4. Retrograde flow in both vertebral arteries. 5. Given the shadowing plaque and retrograde flow in both vertebral arteries, the patient may benefit from a arch and carotid arteriogram to evaluate the ICA stenoses and possible bilateral subclavian artery disease.
[2016-11-09] MEDS ORDERED: Pneumococcal 23-Valent Vaccine IM ONE (20:08)
[2016-11-10 09:37] LABS: HEMATOCRIT 31.2 % (36.0-48.0); MEAN CELL VOLUME 88.4 fL (80.0-105.0); MEAN CORPUSCULAR HEMOGLOBIN 28.3 pg (25.0-35.0); MEAN CORPUSCULAR HGB CONC 32.1 g/dl (31.0-37.0); MEAN PLATELET VOLUME 8.1 fl (7.0-11.0); RED CELL DISTRIBUTION WIDTH 14.7 % (11.5-14.5); WHITE BLOOD COUNT 4.6 10^3/ul (4.5-11.0)
[2016-11-10 09:52] LABS: CALCIUM 9.8 mg/dL (8.4-10.5); MAGNESIUM 2.1 mg/dL (1.7-2.2); POTASSIUM 3.8 mmol/L (3.6-5.0)
--- NOTE | 2016-11-10 12:15 | PN ---
DATE: 11/10/2016 The patient is a 76-year-old, seen and examined, lying in bed, seems to be much more awake and alert. PHYSICAL EXAMINATION: VITAL SIGNS: She is afebrile, pulse 70, respiration 18, blood pressure 107/45. LUNGS: Bilateral fair airflow, no rhonchi or crackle. HEART: S1, S2 audible. ABDOMEN: Soft, nontender, no rebound, no guarding, no hepatosplenomegaly. NEUROLOGIC: The patient is awake and alert, somewhat confused because of her underlying dementia. LABORATORY EXAMINATION: Today, WBCs 4.6, hemoglobin 10, hematocrit 31, platelets of 246. Chemistry: Sodium 137, potassium 3.8, chloride 94, CO2 31, BUN 20, creatinine 5.9, blood sugar of 118. The jannet dalal received hemodialysis yesterday. Blood culture done yesterday was unremarkable, negative. The patient had carotid Doppler study done that shows right ICA 70%-80% and left ICA is 60%-79%. Her CT scan of the head is unremarkable. ASSESSMENT: 1. Near syncope. 2. End-stage renal disease, on hemodialysis. 3. Probably postural hypotension. PLAN: Currently, patient is on hydralazine 25 t.i.d. That we will make as p.r.n. and continue her o n Coreg. We will make hydralazine as needed. Continue on Norvasc and Coreg and monitor blood pressu re. If it continues to remain on the low , might cut down her Norvasc to 5 mg daily. The patient has carotid stenosis that is moderate and so I will get Dr. Elroy Gallego evaluation and I will make f urther plan according to him. The patient will be changed from observation to admission for further management. Virginia Gonzalez MD cc: [phone] TT: 11/10/2016 12:14:10 Confirmation # [id number] Dictation # [id number] en
[2016-11-11 07:58] LABS: HEMATOCRIT 30.2 % (36.0-48.0); MEAN CORPUSCULAR HEMOGLOBIN 28.2 pg (25.0-35.0); MEAN CORPUSCULAR HGB CONC 32.5 g/dl (31.0-37.0); MEAN PLATELET VOLUME 8.9 fl (7.0-11.0); RED CELL DISTRIBUTION WIDTH 14.6 % (11.5-14.5); WHITE BLOOD COUNT 4.6 10^3/ul (4.5-11.0)
[2016-11-11 08:20] LABS: CALCIUM 9.6 mg/dL (8.4-10.5); MAGNESIUM 2.1 mg/dL (1.7-2.2)
[2016-11-11 08:24] LABS: IRON 70 ug/dL (45-180)
[2016-11-11 11:28] LABS: FOLATE 7.5 ng/mL
--- NOTE | 2016-11-11 12:33 | PN ---
DATE: 11/10/2016 SUBJECTIVE: The patient is seen sitting in the ____ room. She is awake. She is alert. As per the nursing staff, she was agitated, threatening to leave the hospital. She is confused at this time. S he does not appear to be in any kind of physical distress. PHYSICAL EXAMINATION: VITAL SIGNS: Blood pressure 107/45, heart rate 60, respiratory rate 18, temperature 98.2. HEENT: Normocephalic, atraumatic. NECK: Supple, no JVD. LUNGS: Bilaterally equal air entry, no rales. CARDIAC: S1, S2, regular rate and rhythm, no murmur, no rub. ABDOMEN: Soft, nondistended, nontender, bowel sounds present. EXTREMITIES: No lower extremity edema. LABORATORY DATA: WBC 4.6, hemoglobin 9.8, hematocrit 30, platelets 257. Sodium 134, potassium 4.0, chloride 94, CO2 of 28, BUN 34, creatinine 5.9, glucose 118, calcium 9.8, phosphorus not checked, mag nesium 2.1. AST 41, ALT 23. CURRENT MEDICATIONS: Hydralazine 25 t.i.d. p.r.n., aspirin, Coreg 12.5 b.i.d., Lipitor 80, Plavix 75 , Remeron, tramadol, amlodipine 10 mg daily. ASSESSMENT: 1. Status post syncopal episode. 2. Profound hypotension, ? orthostatic hypotension. 3. Dementia. 4. Cardiomyopathy/coronary artery disease/coronary artery bypass graft. 5. End-stage renal disease. PLAN: 1. Discontinue amlodipine. 2. Monitor blood pressure closely. 3. Dialysis tomorrow. 4. Discharge planning? Long-term placement? Tory Rubio MD cc: [phone] TT: 11/11/2016 12:32:25 Confirmation # [id number] Dictation # [id number] tn
[2016-11-11 17:12] VITALS: BP 126/60; PULSE 78; RESP 20; TEMP 98.5; O2SAT 99
--- NOTE | 2016-11-11 20:24 | DS ---
The patient is 76 years old, seen and examined, seen in dialysis and doing well. Awake, alert, orien mert, communicative. PHYSICAL EXAMINATION: VITAL SIGNS: She is afebrile, pulse 62, respirations 18, blood pressure 148/67. LUNGS: Bilateral fair airflow, no rhonchi or crackle. HEART: S1, S2 audible. ABDOMEN: Soft, nontender, no rebound, no guarding. NEUROLOGIC: She is awake and alert, communicative. She has limited mobility. LABORATORY EXAM: WBC is 4.6, hemoglobin 9.8, hematocrit 30.2, platelet of 257. Chemistry: Sodium 1 34, potassium 4.0, chloride 94, CO2 of 28, BUN 34, creatinine 7.4, blood sugar 80. 206. ASSESSMENT: 1. Status post near syncope. 2. Bilateral carotid stenosis. 3. End-stage renal disease, on hemodialysis. 4. Status post left fistula placement by Dr. Willis. 5. A 70% to 80% proximal right internal carotid artery stenosis, 60% to 90% left internal carotid ar mariam stenosis. PLAN: I spoke to Dr. Elroy Gallego who thinks the patient has a lot of comorbidities. We need to reac h out to the family. I spoke to the patient's daughter, Rosey, who will call Dr. Elroy Gallego and ge t further answers and then she will with other family members the pros and cons and if they agr ee, they will reach out to Dr. Elroy Gallego, so I will discharge the patient today and she will follow with her PMD and she will follow with Dr. Elroy Gallego if they agree to have a stent placed. Virginia Gonzalez MD cc: [phone] TT: 11/11/2016 20:23:27 shabana
--- NOTE | 2016-11-12 13:49 | PN ---
DATE: 11/11/2016 SUBJECTIVE: The patient is seen sitting in chair. She is awake. She is alert. She is comfortable. She denies any pain. She denies any shortness of breath. PHYSICAL EXAMINATION: GENERAL: Elderly lady, sitting in chair. VITAL SIGNS: Blood pressure 126/60, heart rate 78, respiratory rate 20, temperature 98.5. HEENT: Normocephalic, atraumatic, positive . NECK: Supple, no JVD. LUNGS: Bilateral equal air entry, no rales. CARDIAC: S1, S2, regular rate and rhythm, no murmur, no rub. ABDOMEN: Soft, nondistended, nontender, bowel sounds present. EXTREMITIES: No lower extremity edema. LABORATORY DATA: WBC 4.6, hemoglobin 9.8, hematocrit 30, platelets . Sodium 134, potassium 4.0 , chloride 94, CO2 28, BUN 34, creatinine 7.6, glucose 82, calcium 9.6, magnesium 2.1. ASSESSMENT: 1. Status post syncopal episode. 2. Status post hypotension, orthostatic hypotension. 3. End-stage renal disease. 4. Coronary artery disease, history of coronary artery bypass graft, cardiomyopathy. 5. Anemia of chronic kidney disease. 6. Secondary hyperparathyroidism. PLAN: 1. Stable dialysis today. 2. Blood pressure is improved, but would discontinue amlodipine and clonidine. 3. Close outpatient followup. Tory Rubio MD cc: [id number] TT: 11/12/2016 13:48:31 Confirmation # [id number] Dictation # [id number]
== END 2016-11-11 18:51 | disposition home or self-care (01) | DRG 312 ==
LOC: ED 10:15 → ERH 11:44 → 2RNO 17:35 → OBSVTOIN 11-10 11:41 → 2RSO 11-10 17:04
PROVIDERS: ADMIT Internal Medicine; ATTEND Internal Medicine
DX: I95.1 Orthostatic hypotension (principal); I13.2 Hypertensive heart and chronic kidney disease with heart failure and with stage 5 chronic kidney disease, or end stage renal disease; N18.6 End stage renal disease; N25.81 Secondary hyperparathyroidism of renal origin; I42.9 Cardiomyopathy, unspecified; I65.23 Occlusion and stenosis of bilateral carotid arteries; F03.90 Unspecified dementia, unspecified severity, without behavioral disturbance, psychotic disturbance, mood disturbance, and anxiety; I50.9 Heart failure, unspecified; D63.1 Anemia in chronic kidney disease; I25.10 Atherosclerotic heart disease of native coronary artery without angina pectoris; M15.9 Polyosteoarthritis, unspecified; E78.5 Hyperlipidemia, unspecified; Z79.82 Long term (current) use of aspirin; Z87.891 Personal history of nicotine dependence; Z95.1 Presence of aortocoronary bypass graft; Z99.2 Dependence on renal dialysis

== ENCOUNTER 2016-12-07 08:03 | Day surgery (SDC) | payer MEDICARE, OTHER ==
[2016-12-06 11:34] VITALS: BMI 19.3
--- NOTE | 2016-12-07 09:11 | CP.SDSHP ---
Same Day Surgery H & P - History Proposed Procedure: Fistulogram Pre-Op Diagnosis: ESRD - Previous Medical/Surgical History Cardiac: Hypertension, Previous CA Endocrine/Metabolic: Diabetes, Renal Disease (on Hemodialysis) Neuro: Other (confused and forgetful at times,gets dizzy spells) Misc: Anemia, Other (Arthritis,anxiety.Gout,Alzheimer's ) Pain: 0. No Pain Comments: Pt was told her L Arm AV fistula was not working,was advised fistulogram. Previous Surgical History: Creation of AV fistula,L Arm. CABG 2yrs ago/stress test. Colonoscopy. R chest HD catheter inserted and replaced. Revision of L Arm AV Fistula - Allergies Allergies: Allergies GREG Inhibitors Allergy (Intermediate, Verified 11/09/16 10:34) SWELLING lorazepam [From Ativan] Allergy (Intermediate, Verified 11/09/16 10:34) SWELLING - Physical Exam General Appearance: Elderly female Mental Status: Alert & Oriented x3 Neuro: WNL Heart: WNL Lungs: WNL - {Optional Preform as Required} Abdomen: WNL Other Pertinent Findings: Dialysis catheter noted in R upper chest wall. AV fistuka noted in the L Arm, Diminished thrill,bruit heard well. - Impression Impression: ESRD. Malfunctioning AV Fistula - Date & Time Date: 12/07/16 Time: 09:11 Short Stay Discharge - Short Stay Discharge Admitting Diagnosis/Reason for Visit: ESRD N18.6 Disposition: HOME/ ROUTINE Referrals: Virginia Gonzalez MD [Primary Care Provider] -
[2016-12-07 09:18] LABS: ADD MANUAL DIFF? NO
[2016-12-07 09:33] LABS: CALCIUM 9.8 mg/dL (8.4-10.5); POTASSIUM 5.1 mmol/L (3.6-5.0)
[2016-12-07 09:34] LABS: BASO # 0.03 K/mm3 (0.0-2.0); BASO % 0.5 % (0.0-3.0); EOS # 0.3 (0.0-0.7); EOS % 4.4 % (1.5-5.0); GRAN # 3.08 (1.4-6.5); GRAN % 54.6 % (50.0-68.0); HEMATOCRIT 30.9 % (36.0-48.0); LYMPH # 1.7 (1.2-3.4); LYMPH % 30.9 % (22.0-35.0); MEAN CELL VOLUME 89.6 fL (80.0-105.0); MEAN CORPUSCULAR HEMOGLOBIN 28.7 pg (25.0-35.0); MEAN PLATELET VOLUME 8.9 fl (7.0-11.0); MONO # 0.5 (0.1-0.6); MONO % 9.6 % (1.0-6.0); PLATELET COUNT 194 10^3/uL (120.0-450.0); RED CELL DISTRIBUTION WIDTH 15.9 % (11.5-14.5); WHITE BLOOD COUNT 5.6 10^3/ul (4.5-11.0)
[2016-12-07 09:41] LABS: PARTIAL THROMBOPLASTIN TIME 24.8 Seconds (23.7-30.8)
[2016-12-07] MEDS ORDERED: Nitroglycerin 50mg in D5W 50 MG/250 ML BOTTLE IV ONE (10:29)
[2016-12-07] MEDS ORDERED: Iodixanol 320 mg/ml 150 ml Bottle IV ONE (10:29)
[2016-12-07] MEDS ORDERED: Lidocaine 2% Inj (20ml) ONE (10:29)
[2016-12-07] MEDS ORDERED: Midazolam 2 MG/2 ML VIAL ONE (11:03)
[2016-12-07 12:44] VITALS: RESP 20; TEMP 97.3; O2SAT 100
[2016-12-07 13:10] VITALS: BP 153/100; PULSE 58
--- NOTE | 2016-12-07 19:49 | VASCULAR ---
PROCEDURE: 1. Left upper extremity AV fistula angiogram. 2. Venous angioplasty, left basilic vein transposition fistula. HISTORY: End-stage renal disease. Status post left basilic vein transposition fistula. Failure to mature. PHYSICIAN(S): Elroy Gallego MD. TECHNIQUE: The relative risks and indications of the procedure were explained to the patient and consent obtained. The patient was placed supine on the angiography table and the left arm prepped and draped in usual sterile fashion. Conscious sedation and monitoring provided throughout the procedure by a nurse. The left arm AV fistula was punctured under ultrasound guidance near the elbow in an antegrade direction with a micropuncture set. A 5 Armenian catheter was placed. An overlapping left upper extremity AV fistula angiogram was performed. Central venous imaging was obtained. Pressure was applied near the access site and reflux of the arterial anastomosis performed. A 6 Armenian sheath was placed at the puncture site. The focal stenosis in the left basilic vein was crossed with an angled Glidewire. The stenosis was dilated with an 8 mm balloon. An excellent angiographic result was obtained with a strong thrill. Completion angiograms were obtained. The sheath was removed and hemostasis obtained. The patient tolerated the procedure well. FINDINGS: The patient's left basilic vein transposition fistula demonstrates a severe focal stenosis near the proximal tunnel. This was successfully dilated with an 8 mm balloon. Arterial anastomosis is widely patent. The central veins are widely patent. IMPRESSION: 1. Severe focal stenosis in the basilic vein transposition fistula in the proximal tunnel 2. Successful angioplasty with an 8 mm balloon. 3. Widely patent central veins.
== END 2016-12-07 13:20 | disposition home or self-care (01) ==
LOC: SDSVAS 08:03
PROVIDERS: ATTEND Radiology Vascular & Interventional Radiology
DX: T82.858A Stenosis of other vascular prosthetic devices, implants and grafts, initial encounter (principal); I12.0 Hypertensive chronic kidney disease with stage 5 chronic kidney disease or end stage renal disease; N18.6 End stage renal disease; D64.9 Anemia, unspecified; E11.9 Type 2 diabetes mellitus without complications; G30.9 Alzheimer's disease, unspecified; F02.80 Dementia in other diseases classified elsewhere, unspecified severity, without behavioral disturbance, psychotic disturbance, mood disturbance, and anxiety; F41.9 Anxiety disorder, unspecified; M10.9 Gout, unspecified; I25.2 Old myocardial infarction; Z95.1 Presence of aortocoronary bypass graft; Z99.2 Dependence on renal dialysis; Z88.8 Allergy status to other drugs, medicaments and biological substances; Y84.8 Other medical procedures as the cause of abnormal reaction of the patient, or of later complication, without mention of misadventure at the time of the procedure
CPT/HCPCS: 36415; 36902; 80048; 85025; 85610; 85730; 99152; C1725; C1769; C1894; J1644; J2250; J3010

== ENCOUNTER 2016-12-10 08:46 | Observation (INO) | payer MEDICARE, OTHER ==
[2016-12-10 08:47] VITALS: BMI 20.9
--- NOTE | 2016-12-10 09:27 | ED PDOC ---
Arrival/HPI - General Chief Complaint: Altered Mental Status Time Seen by Provider: 12/10/16 09:01 Historian: Patient, Family (Son) - History of Present Illness Narrative History of Present Illness (Text): 12/10/16 09:31 76 year old female whose past medical history includes ESRD with hemodialysis on //Sun, diabetes (not on medication) presents to the emergency department with right sided hemiparesis since waking up this morning at 07:30 as per son that has since resolved. Patient's son states he noticed right sided weakness and called the ambulance. As per EMS, patient's blood sugar was in the 40s so they gave D50 which improved symptoms. On arrival, patient's son reports she is at baseline with no complaints. Son states she has not been eating lately. No other complaints. PMD: Dr. Morris Time/Duration: 24 hours Symptom Onset: Sudden Symptom Course: Resolved Modifying Factors (Text): None Associated Symptoms (Text): None Past Medical History - Provider Review Nursing Documentation Reviewed: Yes - Infectious Disease Hx of Infectious Diseases: None - Tetanus Immunization Tetanus Immunization: Unknown - Reproductive Menopause: Yes - Cardiac Hx Hypertension: Yes - Pulmonary Hx Respiratory Disorders: No - Neurological Hx Paralysis: No - HEENT Hx HEENT Disorder: Yes (wears glasses) - Renal Hx Dialysis: Yes ([facility] Type of Dialysis Access: quintron cath. R chest Date of Last Dialysis Treatment: 11/09/16 Other/Comment: johnathon av shunt - Endocrine/Metabolic Hx Diabetes Mellitus Type 2: Yes - Hematological/Oncological Hx Blood Transfusions: Yes - Integumentary Hx Dermatological Disorder: No Other/Comment: ble dry skin - Musculoskeletal/Rheumatological Hx Musculoskeletal Disorders: Yes - Gastrointestinal Hx Gastrointestinal Disorders: Yes Hx Diverticulitis: Yes - Genitourinary/Gynecological Hx Genitourinary Disorders: No - Psychiatric Hx Substance Use: No - Surgical History Hx Coronary Stent: Yes (3) Hx Open Heart Surgery: Yes Other/Comment: right chest wall dialysis cath - Anesthesia Hx Anesthesia Reactions: No Hx Malignant Hyperthermia: No - Suicidal Assessment Feels Threatened In Home Enviroment: No Family/Social History - Physician Review Nursing Documentation Reviewed: Yes Family/Social History: Unknown Family HX Smoking Status: Former Smoker Hx Alcohol Use: No Hx Substance Use: No Hx Substance Use Treatment: No Allergies/Home Meds Allergies/Adverse Reactions: Allergies GREG Inhibitors Allergy (Intermediate, Verified 11/09/16 10:34) SWELLING lorazepam [From Ativan] Allergy (Intermediate, Verified 11/09/16 10:34) SWELLING Home Medications: Home Meds Medication Instructions Recorded Confirmed Clopidogrel [Plavix] 75 mg PO DAILY 08/19/14 12/10/16 Furosemide [Lasix] 40 mg PO DAILY 11/24/14 12/10/16 Carvedilol [Coreg] 12.5 mg PO BID 01/15/16 12/10/16 Rosuvastatin Calcium [Crestor] 20 mg PO DAILY 01/15/16 12/10/16 hydrALAZINE [Apresoline] 25 mg PO TID 06/21/16 12/10/16 Mirtazapine [Remeron] 15 mg PO DAILY 10/12/16 12/10/16 Review of Systems - Physician Review All systems were reviewed & negative as marked: Yes - Review of Systems Respiratory: absent: SOB Cardiovascular: absent: Chest Pain Gastrointestinal: absent: Abdominal Pain, Vomiting Neurological: Other (Hemiparesis, resolved) Physical Exam - Physical Exam Narrative Physical Exam (Text): Head: Atraumatic. Normocephalic. Eyes: PERRL. EOMI. Conjunctivae are not pale. ENT: Mucous membranes are moist and intact. Oropharynx is clear and symmetric. Neck: Supple. Full ROM. No JVD. No lymphadenopathy. Cardiovascular: Regular rate. Regular rhythm. No murmurs, rubs, or gallops. Distal pulses are 2+ and symmetric. Pulmonary/Chest: Dialysis catheter on right side of chest. No evidence of respiratory distress. Clear to auscultation bilaterally. No wheezing, rales or rhonchi. Abdominal: Soft and non-distended. There is no tenderness. No rebound, guarding, or rigidity. No organomegaly. Good bowel sounds. Back: No CVA tenderness. Extremities: Left AV fisutla put in 3 days ago with palpable thrill, no surrounding erythema or discharge. No edema. No cyanosis. No clubbing. Full range of motion in all extremities. No calf tenderness. Skin: Skin is warm and dry. No petechiae. No purpura. Neurological: Alert, awake, and oriented to person, place, time, and situation. Normal speech. Psychiatric: Good eye contact. Normal interaction, affect, and behavior. Vital Signs Reviewed: Yes Vital Signs Temp Pulse Resp BP Pulse Ox 12/10/16 11:12 98.7 F 65 16 165/86 H 100 12/10/16 10:50 62 18 165/109 H 100 12/10/16 08:47 98.6 F 58 L 18 147/51 L 100 Temperature: Afebrile Blood Pressure: Normal Pulse: Bradycardic Respiratory Rate: Normal Appearance: Positive for: Well-Appearing, Non-Toxic, Comfortable Pain Distress: None Mental Status: Positive for: Alert and Oriented X 3 Finger Stick Blood Glucose: 168 Medical Decision Making ED Course and Treatment: Impression: 76 year old female whose past medical history includes ESRD with hemodialysis on , diabetes (not on medication) presents to the emergency department with right sided hemiparesis since waking up this morning at 07:30 as per son that has since resolved. Differential Diagnosis include but are not limited to: Plan: -- EKG, Chest X-ray -- Labs -- Reassess and disposition Prior Visits: Notes and results from previous visits were reviewed. Patient last seen in ED on 11/09/16 for dizziness and admitted for near syncope. Progress Notes: Chest X-ray Production Support Supervisor: Eric Moctezuma MD IMPRESSION: Increased pulmonary vascular congestion EKG shows NSR at [address] elevations or depressions No identifiable reason for hypoglycemia. Will require further observation. Dr. Harley accepts to her service. - Lab Interpretations Lab Results: 12/10/16 10:10 12/10/16 10:10 Lab Results 12/10/16 10:10: Sodium 136, Potassium 4.7, Chloride 99, Carbon Dioxide 27, Anion Gap 15, BUN 26 H, Creatinine 5.5 H, Est GFR ( Amer) 9, Est GFR (Non -Af Amer) 7, Random Glucose 61 L, Calcium 9.5, Total Bilirubin 0.6, AST 26, ALT 36, Alkaline Phosphatase 126, Total Protein 8.0, Albumin 3.6, Globulin 4.5, Albumin/Globulin Ratio 0.8 L 12/10/16 10:10: PT 11.2, INR 1.04, APTT 32.2 H 12/10/16 10:10: WBC 7.1 D, RBC 3.63, Hgb 10.4 L, Hct 32.3 L, MCV 89.0, MCH 28.7 , MCHC 32.2, RDW 15.6 H, Plt Count 230, MPV 9.1, Gran % 65.5, Lymph % (Auto) 26.3, Burleigh % (Auto) 6.6 H, Eos % (Auto) 1.3 L, Baso % (Auto) 0.3, Gran # 4.65, Lymph # 1.9, Burleigh # 0.5, Eos # 0.1, Baso # 0.02 - RAD Interpretation Radiology Orders: 12/10/16 09:25 CHEST PORTABLE [RAD] Stat Radiological Engineer: Radiologist - EKG Interpretation Interpreted by ED Physician: Yes Type: 12 lead EKG - Scribe Statement The provider has reviewed the documentation as recorded by the Elsa Bates Provider Scribe Attestation: All medical record entries made by the Elsa were at my direction and personally dictated by me. I have reviewed the chart and agree that the record accurately reflects my personal performance of the history, physical exam, medical decision making, and the department course for this patient. I have also personally directed, reviewed, and agree with the discharge instructions and disposition. Disposition/Present on Arrival - Present on Arrival Any Indicators Present on Arrival: No History of DVT/PE: No History of Uncontrolled Diabetes: No Urinary Catheter: No History of Decub. Ulcer: No History Surgical Site Infection Following: None - Disposition Have Diagnosis and Disposition been Completed?: Yes Diagnosis: Hypoglycemia Disposition: HOSPITALIZED Disposition Time: 11:01 Patient Plan: Observation, Telemetry Condition: FAIR
--- NOTE | 2016-12-10 10:03 | RAD ---
PROCEDURE: CHEST RADIOGRAPH, 1 VIEW HISTORY: hypoglycemia COMPARISON: 11/09/2016 FINDINGS: LUNGS: Increased pulmonary vascular congestion. PLEURA: No pneumothorax or pleural fluid seen. CARDIOVASCULAR: Enlarged heart. OSSEOUS STRUCTURES: The osseous structures demonstrate degenerative changes. VISUALIZED UPPER ABDOMEN: Upper abdomen is suboptimally evaluated. OTHER FINDINGS: Midline sternotomy wires and surgical clips along the left heart border noted. Prior dialysis catheter again seen. IMPRESSION: Increased pulmonary vascular congestion.
[2016-12-10 10:21] LABS: ADD MANUAL DIFF? NO
[2016-12-10 10:32] LABS: BASO # 0.02 K/mm3 (0.0-2.0); BASO % 0.3 % (0.0-3.0); EOS # 0.1 (0.0-0.7); EOS % 1.3 % (1.5-5.0); GRAN # 4.65 (1.4-6.5); GRAN % 65.5 % (50.0-68.0); HEMATOCRIT 32.3 % (36.0-48.0); LYMPH # 1.9 (1.2-3.4); LYMPH % 26.3 % (22.0-35.0); MEAN CORPUSCULAR HEMOGLOBIN 28.7 pg (25.0-35.0); MEAN CORPUSCULAR HGB CONC 32.2 g/dl (31.0-37.0); MEAN PLATELET VOLUME 9.1 fl (7.0-11.0); MONO # 0.5 (0.1-0.6); MONO % 6.6 % (1.0-6.0); PLATELET COUNT 230 10^3/uL (120.0-450.0); RED CELL DISTRIBUTION WIDTH 15.6 % (11.5-14.5); WHITE BLOOD COUNT 7.1 10^3/ul (4.5-11.0)
[2016-12-10 10:35] LABS: INR 1.04 (0.93-1.08); PARTIAL THROMBOPLASTIN TIME 32.2 Seconds (23.7-30.8)
[2016-12-10 10:38] LABS: ALB/GLOB RATIO 0.8 (1.1-1.8); BILIRUBIN,TOTAL 0.6 mg/dL (0.2-1.3); CALCIUM 9.5 mg/dL (8.4-10.5); POTASSIUM 4.7 mmol/L (3.6-5.0)
[2016-12-10] MEDS: Dextrose 5%/0.9% NS 1,000 ML IV SCH ×2 (12:39→21:20)
--- NOTE | 2016-12-10 22:23 | CP.PCM.HP ---
History of Present Illness - History of Present Illness History of Present Illness: Pt. is a 76 year old female presented to ER with right sided weakness. She was found to be hypoglycemic with blood sugar of 50. She was given D50. Blood sugar improved. She has ESRD on hemodialysis. She has anemia, likely related to CKD. No bleeding. CXR- no infiltrate. History of CAD- stable. DM II- not on any anti hypoglycemics. . Present on Admission - Present on Admission Any Indicators Present on Admission: No Review of Systems - Constitutional Constitutional: Lethargy, Malaise - EENT Eyes: absent: As Per HPI, Blind Spots, Blurred Vision, Change in Vision, Decreased Night Vision, Diplopia, Discharge, Dry Eye, Exophthalmos, Floaters, Irritation, Itchy Eyes, Loss of Peripheral Vision, Pain, Photophobia, Requires Corrective Lenses, Sees Flashes, Spots in Vision, Tunnel Vision, Other Visual Disturbances, Loss of Vision, Other Ears: absent: As Per HPI, Decreased Hearing, Ear Discharge, Ear Pain, Tinnitus, Abnormal Hearing, Disequilibrium, Dizziness, Other - Cardiovascular Cardiovascular: absent: As Per HPI, Acrocyanosis, Chest Pain, Chest Pain at Rest , Chest Pain with Activity, Claudication, Diaphoresis, Dyspnea, Dyspnea on Exertion, Edema, Irregular Heart Rhythm, Pain Radiating to Arm/Neck/Jaw, Leg Edema, Leg Ulcers, Lightheadedness, Orthopnea, Palpitations, Paroxysmal Nocturnal Dyspnea, Pedal Edema, Radiating Pain, Rapid Heart Rate, Slow Heart Rate, Syncope, Other - Respiratory Respiratory: absent: As Per HPI, Cough, Dyspnea, Hemoptysis, Dyspnea on Exertion , Wheezing, Snoring, Stridor, Pain on Inspiration, Chest Congestion, Excessive Mucous Production, Change in Mucous Color, Pain with Coughing, Other - Genitourinary Genitourinary: absent: As Per HPI, Change in Urinary Stream, Difficulty Urinating, Dysuria, Flank Pain, Hematuria, Pyuria, Nocturia, Urinary Incontinence, Urinary Frequency, Urinary Hesitance, Urinary Urgency, Voiding Freq/Small Amts, Freq UTI, Hx Renal/Bladder Calculi, Hx /Renal Surgery, Bladder Distension, Other - Musculoskeletal Musculoskeletal: Muscle Weakness - Integumentary Integumentary: absent: As Per HPI, Acne, Alopecia, Bleeding Lesions, Change in Hair, Change in Nails, Change in Pigmentation, Changing Lesions, Dry Skin, Erythema, Furuncle, Hirsutism, Lesions, New Lesions, Non-Healing Lesions, Photosensitivity, Pruritus, Rash, Skin Pain, Skin Ulcer, Sores, Striae, Swelling , Unusual Bruising, Wounds, Jaundice, Other - Neurological Neurological: absent: As Per HPI, Abnormal Gait, Abnormal Hearing, Abnormal Movements, Abnormal Speech, Behavioral Changes, Burning Sensations, Confusion, Convulsions, Disequilibrium, Dizziness, Numbness, Focal Weakness, Frequent Falls , Headaches, Lack of Coordination, Loss of Vision, Memory Loss, Paresthesias, Radicular Pain, Restless Legs, Sensory Deficit, Syncope, Tingling, Tremor, Vertigo, Weakness, Other Visual Disturbances, Other - Psychiatric Psychiatric: absent: As Per HPI, Abnormal Sleep Pattern, Anhedonia, Anxiety, Auditory Hallucinations, Behavioral Changes, Change in Appetite, Change in Libido, Confusion, Depression, Difficulty Concentrating, Hallucinations, Homicidal Ideation, Hopelessness, Irritability, Memory Loss, Mood Swings, Panic Attacks, Paranoia, Suicidal Ideation, Visual Hallucinations, Tactile Hallucinations, Other - Endocrine Endocrine: Fatigue - Hematologic/Lymphatic Hematologic: As Per HPI Past Patient History - Infectious Disease Hx of Infectious Diseases: None - Tetanus Immunizations Tetanus Immunization: Unknown - Past Medical History & Family History Past Medical History?: Yes Past Family History: Reviewed and not pertinent - Past Social History Smoking Status: Former Smoker - CARDIAC Hx Hypertension: Yes - PULMONARY Hx Respiratory Disorders: No - NEUROLOGICAL Hx Neurological Disorder: Yes Hx Transient Ischemic Attacks (TIA): Yes - HEENT Hx HEENT Problems: Yes (wears glasses) - RENAL Hx Dialysis: Yes ([facility] Other/Comment: johnathon av shunt - ENDOCRINE/METABOLIC Hx Diabetes Mellitus Type 2: Yes - HEMATOLOGICAL/ONCOLOGICAL Hx Blood Disorders: Yes Hx Anemia: Yes (blood transfusion) Hx Cancer: (denies colon ca) - INTEGUMENTARY Hx Dermatological Problems: No Other/Comment: ble dry skin - MUSCULOSKELETAL/RHEUMATOLOGICAL Hx Falls: No - GASTROINTESTINAL Hx Gastrointestinal Disorders: Yes Hx Diverticulitis: Yes - GENITOURINARY/GYNECOLOGICAL Hx Genitourinary Disorders: No - PSYCHIATRIC Hx Emotional Abuse: No Hx Physical Abuse: No - SURGICAL HISTORY Hx Coronary Stent: Yes (3) Hx Open Heart Surgery: Yes Other/Comment: right chest wall dialysis cath - ANESTHESIA Hx Anesthesia Reactions: No Hx Malignant Hyperthermia: No Meds Allergies/Adverse Reactions: Allergies Allergy/AdvReac Type Severity Reaction Status Date / Time GREG Inhibitors Allergy Intermediate SWELLING Verified 11/09/16 10:34 lorazepam [From Ativan] Allergy Intermediate SWELLING Verified 11/09/16 10:34 Physical Exam - Constitutional Appears: Well, Non-toxic - Head Exam Head Exam: ATRAUMATIC, NORMAL INSPECTION, NORMOCEPHALIC - Eye Exam Eye Exam: Normal appearance Pupil Exam: NORMAL ACCOMODATION - ENT Exam ENT Exam: Mucous Membranes Moist, Normal Exam - Respiratory Exam Respiratory Exam: Clear to Auscultation Bilateral, NORMAL BREATHING PATTERN - Cardiovascular Exam Cardiovascular Exam: REGULAR RHYTHM, +S1, +S2 - GI/Abdominal Exam GI & Abdominal Exam: Soft - Back Exam Back exam: NORMAL INSPECTION - Neurological Exam Neurological exam: Alert, CN II-XII Intact, Normal Gait, Oriented x3, Reflexes Normal - Skin Skin Exam: Dry, Intact, Normal Color, Warm Results - Vital Signs Recent Vital Signs: Last Vital Signs Temp 98.2 F 12/10/16 17:45 Pulse 58 L 12/10/16 22:00 Resp 20 12/10/16 17:45 BP 136/86 12/10/16 18:40 Pulse Ox 100 12/10/16 12:15 - Labs Result Diagrams: 12/10/16 10:10 12/10/16 10:10 Assessment & Plan - Assessment and Plan (Free Text) Assessment: 1. ESRD on hemodialysis 2. Anemia 3. Hypoglycemia 4. CAD 5. DMII Plan: Hypoglycemia : D5 NS at 80 cc/hr. regular diet. anemia - likely related to CKD, she might need HOLLIE support to maintain normal hemoglobin. Right hemiparesis -improved. Might have TIA. CT head in am. CAD- stable . no active issue. DM II- not on any anti-diabetic meds. will monitor blood sugars. - Date & Time Date: 12/10/16 Time: 10:00
[2016-12-11] MEDS: Dextrose 5%/0.9% NS 1,000 ML IV SCH (01:02)
[2016-12-11 06:28] VITALS: O2SAT 97
[2016-12-11] MEDS: Insulin Reg-LOW-Coverage SC SCH ×2 (09:33→12:24)
--- NOTE | 2016-12-11 11:37 | CARD ---
APPROVED REPORT EKG Measurement Heart [id number] <Conclusion> Sinus rhythm 1st degree AVB New T wave inversions V 1 - 3
[2016-12-11 12:23] VITALS: BP 126/52; PULSE 61; RESP 20; TEMP 97.8
--- NOTE | 2016-12-11 15:13 | DS ---
González Diamond MD cc: [id number] TT: 12/11/2016 10:59:56 jn MTDD
--- NOTE | 2016-12-11 17:22 | CON ---
DATE: 12/11/2016 REASON FOR CONSULTATION: Hypotension, hypoglycemia. HISTORY OF PRESENTING ILLNESS: A 76-year-old lady previously known to me from outpatient hemodialysi s, was brought to the Emergency Room yesterday by son because of poor p.o. intake. As per the son, ace ponce ate well on Sunday. Yesterday she refused to eat. She was found to be hypoglycemic. 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 FAMILY HISTORY: Noncontributory. SOCIAL HISTORY: No smoking, no alcohol use, no IV drug abuse. ALLERGIES: GREG INHIBITORS AND ATIVAN. MEDICATIONS CURRENTLY: Hydralazine 25 t.i.d., aspirin 81, Coreg 12.5 b.i.d., Lasix 40 daily ?, Lipit or 80, amlodipine 10, Plavix 75, Remeron. REVIEW OF SYSTEMS: Currently, patient denies any pain anywhere. She denies any shortness of breath. She denies any chest tightness. She denies any abdominal pain, nausea, vomiting. The rest unremar kable. PHYSICAL EXAMINATION OBTAINED ON ADMISSION: GENERAL: Elderly lady sitting in bed. VITAL SIGNS: Blood pressure 126/52, heart rate 61, respiratory rate 20, temperature 97.8. HEENT: Normocephalic, atraumatic. NECK: Supple, no JVD. LUNGS: Bilateral equal air entry, no rales. CARDIAC: S1, S2, regular rate and rhythm, no murmur, no rub. ABDOMEN: Soft, nondistended, nontender. Bowel sounds present. EXTREMITIES: No lower extremity edema. LABORATORY DATA: WBC 7.1, hemoglobin 10.4, hematocrit 32, platelets 230. Sodium 136, potassium 4.7, chloride 99, CO2 27, BUN 26, creatinine 5.5, glucose 61, calcium 9.5, AST 26, ALT 36, albumin 3.6. ASSESSMENT AND PLAN: 1. Hypoglycemia, resolving. 2. Hypertension, well controlled, will optimize medications as an outpatient. 3. End-stage renal disease. 4. Dementia. 5. Coronary artery disease, congestive heart failure, cardiomyopathy. PLAN: 1. Push p.o. intake. 2. Restart Megace. 3. Dialysis Sunday, and Sunday. 4. Low blood pressure. We will continue to monitor. Tory Rubio MD cc: [phone] TT: 12/11/2016 17:21:33 Confirmation # [id number] Dictation # [id number] mn
--- NOTE | 2016-12-11 19:01 | DS ---
The patient is a 76-year-old black female who came in with right-sided weakness. She was found to be hypoglycemic with blood sugar of 50. She was given D50. Blood sugar improved and so did her weakne ss. PHYSICAL EXAMINATION: GENERAL: Today, she is awake and alert, communicative, eating and tolerating. No nausea, no vomitin g, no diarrhea. Moves all extremities, wants to go home. VITAL SIGNS: She is afebrile, pulse 61, respirations 20, blood pressure 126/52. LUNGS: Bilateral fair airflow, no rhonchi or crackle. HEART: S1, S2 audible. ABDOMEN: Soft, nontender, no rebound, no guarding. NEUROLOGIC: She is awake and alert, communicative, ambulatory. ASSESSMENT AND PLAN: 1. Generalized weakness secondary to hypoglycemia. 2. End-stage renal disease, on hemodialysis. 3. Hypertension. 4. Chronic anemia. 5. Hyperlipidemia. PLAN: The patient is not on any oral hypoglycemic. She is advised to have regular small meals . She will resume her medication as prior to admission including hydralazine, amlodipine, Crestor, R emeron, Coreg, aspirin, and atorvastatin. She will follow with her PMD. Virginia Gonzalez MD cc: [phone] TT: 12/11/2016 19:00:08 [place]
== END 2016-12-11 15:00 | disposition home or self-care (01) ==
LOC: ED 08:46 → ERH 11:03 → 2RNO 11:54
PROVIDERS: ADMIT Internal Medicine Medical Oncology; ATTEND Internal Medicine
DX: E11.649 Type 2 diabetes mellitus with hypoglycemia without coma (principal); N18.6 End stage renal disease; D63.1 Anemia in chronic kidney disease; E11.22 Type 2 diabetes mellitus with diabetic chronic kidney disease; E78.5 Hyperlipidemia, unspecified; F03.90 Unspecified dementia, unspecified severity, without behavioral disturbance, psychotic disturbance, mood disturbance, and anxiety; I13.2 Hypertensive heart and chronic kidney disease with heart failure and with stage 5 chronic kidney disease, or end stage renal disease; I25.10 Atherosclerotic heart disease of native coronary artery without angina pectoris; I42.9 Cardiomyopathy, unspecified; I50.9 Heart failure, unspecified; Z79.02 Long term (current) use of antithrombotics/antiplatelets; Z79.899 Other long term (current) drug therapy; Z95.1 Presence of aortocoronary bypass graft; Z95.5 Presence of coronary angioplasty implant and graft; Z99.2 Dependence on renal dialysis; K57.92 Diverticulitis of intestine, part unspecified, without perforation or abscess without bleeding; Z87.891 Personal history of nicotine dependence; R53.1 Weakness; I95.9 Hypotension, unspecified
CPT/HCPCS: 71010; 80053; 82948; 85025; 85610; 85730; 93005; 99285; G0378; J7042

== ENCOUNTER 2017-02-01 06:32 | Day surgery (SDC) | payer OTHER, MEDICARE ==
[2017-01-31 10:05] VITALS: BMI 19.3
[2017-02-01] MEDS ORDERED: Lidocaine 2% Inj (20ml) ONE (06:43)
[2017-02-01 07:23] LABS: BASO # 0.02 K/mm3 (0.0-2.0); BASO % 0.4 % (0.0-3.0); EOS # 0.2 (0.0-0.7); EOS % 3.9 % (1.5-5.0); GRAN # 2.41 (1.4-6.5); GRAN % 50.1 % (50.0-68.0); HEMOGLOBIN 10.5 gm/dL (12.0-16.0); LYMPH # 1.8 (1.2-3.4); LYMPH % 36.3 % (22.0-35.0); MEAN CELL VOLUME 94.2 fL (80.0-105.0); MEAN CORPUSCULAR HEMOGLOBIN 29.2 pg (25.0-35.0); MEAN PLATELET VOLUME 8.5 fl (7.0-11.0); MONO # 0.5 (0.1-0.6); MONO % 9.3 % (1.0-6.0); PLATELET COUNT 183 10^3/uL (120.0-450.0); RED CELL DISTRIBUTION WIDTH 16.9 % (11.5-14.5); WHITE BLOOD COUNT 4.8 10^3/ul (4.5-11.0)
--- NOTE | 2017-02-01 07:24 | CP.SDSHP ---
Same Day Surgery H & P - History Proposed Procedure: removal of tunneled dialysis catheter. Pre-Op Diagnosis: needs catheter removed. - Previous Medical/Surgical History Cardiac: Hypertension, ASHD/CAD, Previous SC Endocrine/Metabolic: Diabetes, Renal Disease Neuro: Backaches Misc: Anemia Pain: 0. No Pain - Allergies Allergies: Allergies GREG Inhibitors Allergy (Intermediate, Verified 11/09/16 10:34) SWELLING lorazepam [From Ativan] Allergy (Intermediate, Verified 11/09/16 10:34) SWELLING - Physical Exam General Appearance: asthenic . generalized weakness. Vital Signs: Vital Signs 02/01/17 07:08 Temperature 98.7 F Pulse Rate 62 Respiratory 18 Rate Blood Pressure 139/59 L O2 Sat by Pulse 99 Oximetry Mental Status: Alert & Oriented x3 Neuro: WNL Heart: WNL Lungs: Other (decreased breath sounds bilateraly.) GI: WNL - {Optional Preform as Required} Other Pertinent Findings: hyperlipidemia.arthritis. - Impression Impression: ckd . dialysis catheter needs removal. - Date & Time Date: 02/01/17 Time: 07:23 Short Stay Discharge - Short Stay Discharge Admitting Diagnosis/Reason for Visit: N16.9 Disposition: HOME/ ROUTINE Referrals: Nick Petty MD [Primary Care Provider] -
[2017-02-01] MEDS ORDERED: Midazolam 2 MG/2 ML VIAL ONE (07:28)
[2017-02-01 07:34] LABS: INR 1.01 (0.93-1.08); PARTIAL THROMBOPLASTIN TIME 26.5 Seconds (23.7-30.8); PROTHROMBIN TIME 10.9 Seconds (9.9-11.8)
[2017-02-01 07:35] LABS: CALCIUM 9.7 mg/dL (8.4-10.5)
[2017-02-01 09:01] VITALS: RESP 18; TEMP 97.8; O2SAT 100
[2017-02-01 09:47] VITALS: BP 152/76; PULSE 65
--- NOTE | 2017-02-01 14:46 | VASCULAR ---
PROCEDURE: Removal of tunneled right IJ dialysis catheter. CLINICAL HISTORY: End-stage renal disease. Malfunctioning tunneled right IJ dialysis catheter. Functioning left upper extremity AV access. PHYSICIAN(S): Elroy Gallego M.D. TECHNIQUE: The relative risks and indications of the procedure were explained to the patient and consent obtained. The patient was placed supine on the arteriogram table and the tunneled right IJ dialysis catheter prepped and draped in the usual sterile fashion. Conscious sedation and monitoring were provided throughout the procedure by nurse. 1% Xylocaine was used to anesthetize skin and soft tissues along the tunnel. The tunnel and cuff were bluntly dissected. The catheter was removed and pressure applied at the venous insertion site. A single interrupted suture was placed at the exit site. The patient tolerated the procedure well. IMPRESSION: 1. Removal of the patient's tunneled right IJ dialysis catheter.
== END 2017-02-01 09:30 | disposition home or self-care (01) ==
LOC: SDSVAS 06:32
PROVIDERS: ATTEND Radiology Vascular & Interventional Radiology
DX: T82.41XA Breakdown (mechanical) of vascular dialysis catheter, initial encounter (principal); I12.0 Hypertensive chronic kidney disease with stage 5 chronic kidney disease or end stage renal disease; N18.6 End stage renal disease; E11.22 Type 2 diabetes mellitus with diabetic chronic kidney disease; I25.10 Atherosclerotic heart disease of native coronary artery without angina pectoris; I25.2 Old myocardial infarction
CPT/HCPCS: 36415; 36589; 80048; 85025; 85610; 85730; 99152; J1644; J2250; J2405; J3010; J7030

== ENCOUNTER 2017-03-15 06:32 | Day surgery (SDC) | payer MEDICARE, OTHER ==
[2017-03-13 13:11] VITALS: BMI 19.3
[2017-03-15] MEDS ORDERED: Iodixanol 320 MG/ML 100 ML BOTTLE IV ONE (06:39)
[2017-03-15] MEDS ORDERED: Nitroglycerin 50mg in D5W 50 MG/250 ML BOTTLE IV ONE (06:39)
[2017-03-15] MEDS ORDERED: Lidocaine 2% Inj (20ml) ONE (06:39)
[2017-03-15] MEDS ORDERED: Midazolam 2 MG/2 ML VIAL ONE (07:33)
[2017-03-15 09:34] VITALS: O2SAT 99
[2017-03-15] MEDS ORDERED: Oxycodone/Acetaminophen 5/325 mg Tab PO ONE ×2 (09:50→09:55)
[2017-03-15] MEDS ORDERED: Oxycodone/Acetaminophen 5/325 mg Tab ONE (09:50)
[2017-03-15] MEDS ORDERED: Oxycodone/Acetaminophen 5/325 mg Tab PO PRN (10:15)
[2017-03-15 10:54] VITALS: BP 118/49; PULSE 58; RESP 18; TEMP 97.2
--- NOTE | 2017-03-15 14:43 | VASCULAR ---
PROCEDURE: 1. Left upper extremity AV fistula angiogram 2. Left basilic vein transposition venous angioplasty HISTORY: End-stage renal disease. Malfunctioning AV access PHYSICIAN(S): Elroy Gallego MD. TECHNIQUE: The relative risks and indications of the procedure were explained to the patient and her son and consent obtained. The patient was placed supine on the angiography table and the left arm prepped and draped in usual sterile fashion. Conscious sedation and monitoring provided throughout the procedure by a nurse. The left arm AV fistula was punctured near the elbow in an antegrade direction with a micropuncture set. A 5 [place] catheter was placed. An overlapping left upper extremity AV fistula angiogram was performed. Central venous imaging was obtained. Pressure was applied near the access site and reflux of the arterial anastomosis performed. Exchange is made for a 6 [place] sheath. The stenosis in the basilic vein transposition fistula was crossed with an angled Glidewire. Additional imaging of the left subclavian vein at the 1st rib was performed. No obvious stenosis with collaterals was appreciated. 0.035 support wire was placed in the IVC. The critical stenosis in the left basilic vein transposition fistula was dilated with an 8 mm x 8 cm balloon. A good angiographic result was obtained with brisk flow. No stent was utilized. The sheath was removed and hemostasis obtained. FINDINGS: There is a critical 6 cm stenosis of the patient's left basilic vein transposition fistula in the mid upper arm. The articular anastomosis is widely patent. Vein is somewhat small in caliber and deep beneath the skin. The left axillary vein is normal in appearance. There appears to be narrowing of the left subclavian vein is a crosses the 1st rib. Additional imaging was obtained and no collaterals are present. This area was not treated. The left innominate vein and SVC are normal. The arterial anastomosis is patent. IMPRESSION: 1. Severe venous stenosis -left basilic vein transposition in the mid arm. 2. Successful venous angioplasty with an 8 mm balloon. No stent was required. 3. The transposition fistula is somewhat deep. The fistula was marked with ultrasound.
[2017-03-16] MEDS ORDERED: Iohexol 350 MG/100 ML VIAL ONE (01:20)
== END 2017-03-15 11:35 | disposition home or self-care (01) ==
LOC: SDSVAS 06:32
PROVIDERS: ATTEND Radiology Vascular & Interventional Radiology
DX: T82.858A Stenosis of other vascular prosthetic devices, implants and grafts, initial encounter (principal); Y83.2 Surgical operation with anastomosis, bypass or graft as the cause of abnormal reaction of the patient, or of later complication, without mention of misadventure at the time of the procedure; I12.0 Hypertensive chronic kidney disease with stage 5 chronic kidney disease or end stage renal disease; N18.6 End stage renal disease; E11.22 Type 2 diabetes mellitus with diabetic chronic kidney disease; Z99.2 Dependence on renal dialysis; J44.9 Chronic obstructive pulmonary disease, unspecified; F03.90 Unspecified dementia, unspecified severity, without behavioral disturbance, psychotic disturbance, mood disturbance, and anxiety; I25.10 Atherosclerotic heart disease of native coronary artery without angina pectoris; I25.2 Old myocardial infarction
CPT/HCPCS: 36902; 99152; C1725; C1769 ×2; C1887; C1894; J1644; J2250; J3010; Q9967

== ENCOUNTER 2017-03-19 13:15 | Day surgery (SDC) | payer MEDICARE, OTHER ==
[2017-03-13 13:11] VITALS: BMI 19.3
[2017-03-19] MEDS ORDERED: Lidocaine 2% Inj (20ml) ONE (14:21)
[2017-03-19] MEDS ORDERED: Morphine 2 mg/ml ISec ONE (15:26)
[2017-03-19 17:14] VITALS: RESP 18; TEMP 97.7; O2SAT 98
[2017-03-19 17:26] VITALS: BP 159/74; PULSE 55
--- NOTE | 2017-03-19 20:52 | VASCULAR ---
PROCEDURE: Ultrasound and fluoroscopic tunneled right IJ dialysis catheter. CLINICAL HISTORY: ESRD thrombosed left upper extremity fistula. Needs access for dialysis. PHYSICIAN(S): Elroy Gallego M.D. TECHNIQUE: The relative risks and indications for the procedure were explained to the patient and informed written consent obtained. The patient was placed supine on the arteriography table and the right neck/chest was prepped and draped in the usual sterile fashion. 1% Xylocaine was used to anesthetize the skin and soft tissues at the puncture site. Conscious sedation and monitoring were provided throughout the procedure by a nurse. Under direct ultrasound guidance, the rightinternal jugular vein was punctured at the innominate confluence with a micropuncture set. A 0.035 Glidewire was advanced into the IVC. Sequential dilatation was performed with subsequent placement of a 24 cm[place]annon II catheter with its tip in the right atrium. A retrograde tunnel below the right clavicle was performed. The catheter was trimmed and the hub attached. Both ports aspirate and inject easily. The catheter was secured and a dressing applied. The patient tolerated the procedure well. IMPRESSION: 1. Ultrasound and fluoroscopically placed right IJ tunneled dialysis catheter.
== END 2017-03-19 17:30 | disposition home or self-care (01) ==
LOC: SDSVAS 13:15
PROVIDERS: ATTEND Radiology Vascular & Interventional Radiology
DX: T82.868A Thrombosis due to vascular prosthetic devices, implants and grafts, initial encounter (principal); I12.0 Hypertensive chronic kidney disease with stage 5 chronic kidney disease or end stage renal disease; E11.22 Type 2 diabetes mellitus with diabetic chronic kidney disease; N18.6 End stage renal disease; Z99.2 Dependence on renal dialysis; I25.10 Atherosclerotic heart disease of native coronary artery without angina pectoris; Z95.1 Presence of aortocoronary bypass graft; I25.2 Old myocardial infarction; G30.9 Alzheimer's disease, unspecified; F02.80 Dementia in other diseases classified elsewhere, unspecified severity, without behavioral disturbance, psychotic disturbance, mood disturbance, and anxiety; Y83.2 Surgical operation with anastomosis, bypass or graft as the cause of abnormal reaction of the patient, or of later complication, without mention of misadventure at the time of the procedure
CPT/HCPCS: 36558; 76937; 77001; C1752; C1769; J0690; J1644; J2270; J2405